=== PATIENT | female | born 1955 | race Caucasian/White ===

== ENCOUNTER 2017-11-06 10:08 | Inpatient (IN) ==
--- NOTE | 2017-11-06 11:02 | Emergency Department Note ---
Disposition Clinical Impression: Acute psychosis Disposition: Still a Patient Condition: Fair Referrals: NONE,PCP [Non-Partnered Physician] - Time of Disposition: 16:22 Psych HPI - General Stated Complaint: "psych eval" Time Seen by Provider: 11/06/17 10:45 Source: patient, family Mode of arrival: ambulatory Limitations: altered mental status Nursing Notes Reviewed: Yes Vital Signs Reviewed: Yes - History of Present Illness HPI Narrative: Nontoxic-appearing 62-year-old female with a history of schizophrenia is brought to emergency department for evaluation of worsening delusions and racing thoughts. According to the patient's spouse, she was recently discharged (approximately 5 weeks ago) from a psychiatric facility in [facility]. He states that ever since, he has noticed a gradual decline. He states that the patient is accusing both himself and other family members of inappropriate sexual contact with other members of her family. The spouse states that the patient has been trespassing into facilities, thinking that she is an employee at those facilities. 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 He states she has not in fact employed by that facility. He states that he feels as if her medications are just not working. She denies any thoughts of self-harm or thoughts of harming others. Onset (ago): unknown Duration: getting worse History of similar episodes: Yes Worsens with: none Alleged intoxication: No Associated Psychiatric Symptoms: racing thoughts, delusions Associated symptoms: Reports: denies other symptoms Self harm or harm to others: denies thoughts of harming self/others All systems ED: reviewed and negative except as stated. Constitutional: Denies: fever, chills, weakness, weight change Eyes: Denies: eye pain, eye discharge, vision change ENT ED: Denies: ear pain, throat pain, dental pain, hearing loss, epistaxis, congestion, dysphagia Cardiovascular: Denies: chest pain, palpitations, dyspnea on exertion, edema, syncope Respiratory: Denies: cough, dyspnea, wheezes, hemoptysis, stridor Gastrointestinal: Denies: abdominal pain, nausea, vomiting, diarrhea, constipation, hematemesis, melena, hematochezia Genitourinary: Denies: dysuria, frequency, hematuria, discharge Musculoskeletal: Denies: back pain, neck pain, arthralgia, myalgia Integumentary: Denies: rash, abrasion, lesions Neurological: Denies: headache, weakness, numbness, paresthesias, confusion, abnormal gait, vertigo Psychiatric: Reports: as per HPI, other (Delusions). Denies: anxiety, depression, suicidal thoughts, homicidal thoughts, auditory hallucinations, visual hallucinations Endocrine: Denies: fatigue Hematological/Lymphatic: Denies: easy bleeding, easy bruising Allergic/Immunologic: Denies: facial swelling, urticaria Past Medical History - Past Medical History Attestation: Yes The following information was validated with the patient. Source: patient, obtained from family, nursing notes reviewed Physical Exam - General Limitations: no limitations General appearance: alert, in no apparent distress - Head Head exam: atraumatic, normocephalic, normal inspection - Eye Eye exam: Present: normal appearance, PERRL, EOMI. Absent: nystagmus - ENT ENT exam: mucous membranes moist - Neck Neck exam: Present: normal inspection, full ROM, trachea midline - Chest Chest inspection: Present: normal inspection, symmetric chest wall rise - Respiratory Respiratory exam: Present: normal lung sounds bilaterally. Absent: respiratory distress, wheezes, stridor, accessory muscle use, prolonged expiratory phase - Cardiovascular Cardiovascular exam: Present: regular rate, normal rhythm, normal heart sounds - Abdominal Exam Abdominal exam: Present: soft, Non-Tender, normal bowel sounds - Extremities Exam Extremities exam: Present: normal inspection, full ROM. Absent: tenderness, pedal edema - Neurological Exam Neurological exam: Present: alert - Psychiatric Psychiatric exam: Present: agitated. Absent: homicidal ideation, suicidal ideation - Skin Skin exam: Present: warm, dry, intact, normal color. Absent: rash Course Course Narrative: 1550: I been notified by a business representative from [employer] that according to Dr. Rivers , the patient does not meet criteria for admission. I have requested a repeat mental health evaluation, given the patient's statements and states it is made by her spouse. Starch Mangle Tender from [facility] also questions the patient being slightly hypokalemic at 3.1 as well as slightly hyponatremic at 132. We will replace her potassium with 40 mEq of oral potassium chloride and administer a one-time 1 L bolus of normal saline to correct the hyponatremia. Urinalysis showed trace blood, small leukocyte esterase, many epithelial cells, and no bacteria. I do not feel that the urinalysis warrants treatment for a urinary tract infection. Vital Signs Pulse Rate 89 11/06/17 14:59 Respiratory Rate 16 11/06/17 14:59 Blood Pressure 129/72 11/06/17 14:59 O2 Sat by Pulse Oximetry 98 11/06/17 14:59 Pulse Rate 89 11/06/17 14:59 Respiratory Rate 16 11/06/17 14:59 Blood Pressure 129/72 11/06/17 14:59 O2 Sat by Pulse Oximetry 98 11/06/17 14:59 Oxygen Delivery Oxygen Delivery Room Air Psych - Lab Data Lab results reviewed: Yes I reviewed the patient's lab results. Result diagrams: 11/06/17 11:13 11/06/17 11:13 Lab Results 11/06/17 11/06/17 11/06/17 Range/Units 11:13 11:13 11:27 WBC 7.7 (4.3-11.1) K/mcL RBC 4.19 (3.82-4.97) M/mcL Hgb 12.3 (11.5-15.4) g/dL Hct 33.9 L (35.3-44.9) % MCV 80.9 L (83.0-100.0) fL MCH 29.4 (28.0-33.3) pg MCHC 36.3 H (31.6-35.5) g/dL RDW 12.3 (11.5-14.5) % Plt Count 310 (140-400) K/mcL MPV 10.3 (9.4-12.4) fL Immature Gran % 0.3 (0-4) % Seg Neutrophils % 75.9 % Lymphocytes % 17.0 % Monocytes % 6.1 % Eosinophils % 0.3 % Basophils % 0.4 % Neutrophils # 5.9 (1.6-8.9) K/mcL Lymphocytes # 1.3 (0.6-4.6) K/mcL Monocytes # 0.5 (0.0-1.3) K/mcL Eosinophils # 0.0 (0.0-0.6) K/mcL Basophils # 0.0 (0.0-0.2) K/mcL Sodium 132 L (136-145) mEq/L Potassium 3.1 L (3.5-5.1) mEq/L Chloride 99 (98-107) mEq/L Carbon Dioxide 27 (23-29) mEq/L BUN 22 (8-23) mg/dL Creatinine 1.09 (0.60-1.20) mg/dL Est GFR ( Amer) > 60 (> 60) Est GFR (Non-Af Amer) 51 L (> 60) BUN/Creatinine Ratio 20 (6-26) Glucose 148 H (70-105) mg/dL Calculated Osmolality 280 (280-300) Calcium 9.7 (8.6-10.3) mg/dL TSH 0.841 (0.340-5.600) mcIU/mL Urine Color Yellow (Yellow) Urine Clarity Clear (Clear) Urine pH 6.5 (5.0-8.0) pH Units Ur Specific [place] 1.012 (1.010-1.025) Urine Protein Negative (Neg-Trace) mg/dL Urine Glucose (UA) Normal (Normal) mg/dL Urine Ketones Negative (Negative) mg/dL Urine Blood Trace H (Negative) Urine Nitrite Negative (Negative) Urine Bilirubin Negative (Negative) Urine Urobilinogen Normal (Normal) mg/dL Ur Leukocyte Esterase Small H (Negative) Urine Microscopic RBC 0-3 (0-3) per hpf Urine Microscopic WBC 3-5 H (0-3) per hpf Ur Squamous Epith Cells Moderate H (None-Few) per lpf Urine Bacteria None Seen (None-Few) per hpf Hyaline Casts None Seen (None-Few) per lpf Salicylates < 2.5 L (15.0-30.0) mg/dL Urine Opiates Screen (Vuimwt=760) ng/mL Acetaminophen < 10 L (10-20) mcg/mL Ur Barbiturates Screen (Fhlsif=448) ng/mL Ur Phencyclidine Scrn (Cutoff=25) ng/mL Ur Amphetamines Screen (Adgdcr=2496) ng/mL U Benzodiazepines Scrn (Nvimsf=570) ng/mL Urine Cocaine Screen (Cutoff= 300) ng/mL U Marijuana (THC) Screen (Cutoff = 50) ng/mL Ur Drug Screen Interp Ethyl Alcohol < 10 (Less than 10) mg/dL 11/06/17 Range/Units 11:27 WBC (4.3-11.1) K/mcL RBC (3.82-4.97) M/mcL Hgb (11.5-15.4) g/dL Hct (35.3-44.9) % MCV (83.0-100.0) fL MCH (28.0-33.3) pg MCHC (31.6-35.5) g/dL RDW (11.5-14.5) % Plt Count (140-400) K/mcL MPV (9.4-12.4) fL Immature Gran % (0-4) % Seg Neutrophils % % Lymphocytes % % Monocytes % % Eosinophils % % Basophils % % Neutrophils # (1.6-8.9) K/mcL Lymphocytes # (0.6-4.6) K/mcL Monocytes # (0.0-1.3) K/mcL Eosinophils # (0.0-0.6) K/mcL Basophils # (0.0-0.2) K/mcL Sodium (136-145) mEq/L Potassium (3.5-5.1) mEq/L Chloride (98-107) mEq/L Carbon Dioxide (23-29) mEq/L BUN (8-23) mg/dL Creatinine (0.60-1.20) mg/dL Est GFR ( Amer) (> 60) Est GFR (Non-Af Amer) (> 60) BUN/Creatinine Ratio (6-26) Glucose (70-105) mg/dL Calculated Osmolality (280-300) Calcium (8.6-10.3) mg/dL TSH (0.340-5.600) mcIU/mL Urine Color (Yellow) Urine Clarity (Clear) Urine pH (5.0-8.0) pH Units Ur Specific [place] (1.010-1.025) Urine Protein (Neg-Trace) mg/dL Urine Glucose (UA) (Normal) mg/dL Urine Ketones (Negative) mg/dL Urine Blood (Negative) Urine Nitrite (Negative) Urine Bilirubin (Negative) Urine Urobilinogen (Normal) mg/dL Ur Leukocyte Esterase (Negative) Urine Microscopic RBC (0-3) per hpf Urine Microscopic WBC (0-3) per hpf Ur Squamous Epith Cells (None-Few) per lpf Urine Bacteria (None-Few) per hpf Hyaline Casts (None-Few) per lpf Salicylates (15.0-30.0) mg/dL Urine Opiates Screen Negative (Haknso=141) ng/mL Acetaminophen (10-20) mcg/mL Ur Barbiturates Screen Negative (Iwnbid=770) ng/mL Ur Phencyclidine Scrn Negative (Cutoff=25) ng/mL Ur Amphetamines Screen Negative (Ohcuoy=9909) ng/mL U Benzodiazepines Scrn Negative (Hjfcap=629) ng/mL Urine Cocaine Screen Negative (Cutoff= 300) ng/mL U Marijuana (THC) Screen Negative (Cutoff = 50) ng/mL Ur Drug Screen Interp See Below Ethyl Alcohol (Less than 10) mg/dL Psychiatric Medical Clearance - Medical Clearance Checklist Medical History: No Social History Section defined Current Vitals: Last Vital Signs Pulse 89 11/06/17 14:59 Resp 16 11/06/17 14:59 BP 129/72 11/06/17 14:59 Pulse Ox 98 11/06/17 14:59 Psychiatric Lab Panel: Drug Levels and Toxicity 11/06/17 11/06/17 11:13 11:27 Urine Opiates Screen Negative Acetaminophen < 10 L Ur Barbiturates Screen Negative Ur Phencyclidine Scrn Negative Ur Amphetamines Screen Negative U Benzodiazepines Scrn Negative Urine Cocaine Screen Negative U Marijuana (THC) Screen Negative Ethyl Alcohol < 10 Abnormal Labs: Abnormal lab results Hct 33.9 % (35.3-44.9) L 11/06/17 11:13 MCV 80.9 fL (83.0-100.0) L 11/06/17 11:13 MCHC 36.3 g/dL (31.6-35.5) H 11/06/17 11:13 Sodium 132 mEq/L (136-145) L 11/06/17 11:13 Potassium 3.1 mEq/L (3.5-5.1) L 11/06/17 11:13 Est GFR (Non-Af Amer) 51 (> 60) L 11/06/17 11:13 Glucose 148 mg/dL (70-105) H 11/06/17 11:13 Urine Blood Trace (Negative) H 11/06/17 11:27 Ur Leukocyte Esterase Small (Negative) H 11/06/17 11:27 Urine Microscopic WBC 3-5 per hpf (0-3) H 11/06/17 11:27 Ur Squamous Epith Cells Moderate per lpf (None-Few) H 11/06/17 11:27 Salicylates < 2.5 mg/dL (15.0-30.0) L 11/06/17 11:13 Acetaminophen < 10 mcg/mL (10-20) L 11/06/17 11:13 Statement of Medical Clearance: I have evaluated the patient, reviewed diagnostic information, and certify that the patient's medical condition is sufficiently stable that transfer to the psychiatric unit does not pose a significant risk of deterioration. Teri - Teri Situation: Demographics, MOA Background: Presenting Complaint, Relevant PMH, Meds, & Allergies Assessment: Vital Signs, Course and respsone to treatment, Exam Concerns, Patient/Family Expectation, Pertinant Lab Results, Outstanding Labs Recommendation: Barrier(s) to disposition, Recommendation based on pending studies, treatments, or consults [email or web address] Report Given to: Dr. Jaden Williamson Repor Time: 16:21
[2017-11-06 11:42] LABS: Basophils % 0.4 %; Eosinophils % 0.3 %; Hematocrit 33.9 % (35.3-44.9); Hemoglobin 12.3 g/dL (11.5-15.4); Immature Granulocytes % 0.3 % (0-4); Lymphocytes # 1.3 K/mcL (0.6-4.6); Mean Corpuscular HGB Conc 36.3 g/dL (31.6-35.5); Mean Corpuscular Hemoglobin 29.4 pg (28.0-33.3); Mean Corpuscular Volume 80.9 fL (83.0-100.0); Mean Platelet Volume 10.3 fL (9.4-12.4); Monocytes # 0.5 K/mcL (0.0-1.3); Monocytes % 6.1 %; Neutrophils # 5.9 K/mcL (1.6-8.9); Platelet Count 310 K/mcL (140-400); Red Blood Count 4.19 M/mcL (3.82-4.97); Red Cell Distribution Width 12.3 % (11.5-14.5); Segmented Neutrophils % 75.9 %
[2017-11-06 11:43] LABS: Bilirubin,Urine Negative (Negative); Blood,Urine Trace (Negative); Clarity,Urine Clear (Clear); Color,Urine Yellow (Yellow); Glucose,Urine (UA) Normal (Normal); Ketones,Urine Negative (Negative); Leukocyte Esterase,Urine Small (Negative); Nitrite,Urine Negative (Negative); PH,Urine 6.5 pH Units (5.0-8.0); Protein,Urine Negative (Neg-Trace); Specific Gravity,Urine 1.012 (1.010-1.025); Urobilinogen,Urine Normal (Normal)
[2017-11-06 11:44] LABS: Bacteria,Urine None Seen per hpf (None-Few); Hyaline Casts,Urine None Seen per lpf (None-Few); RBC,Urine 0-3 per hpf (0-3); Squamous Epithelial Cell,Urine Moderate per lpf (None-Few)
[2017-11-06 11:49] LABS: Acetaminophen < 10 mcg/mL (10-20); BUN/Creatinine Ratio 20 (6-26); Blood Urea Nitrogen 22 mg/dL (8-23); Calcium 9.7 mg/dL (8.6-10.3); Carbon Dioxide 27 mEq/L (23-29); Chloride 99 mEq/L (98-107); Ethanol < 10 mg/dL (Less than 10); Glucose 148 mg/dL (70-105); Osmolality,Calculated 280 (280-300); Potassium 3.1 mEq/L (3.5-5.1); Salicylate < 2.5 mg/dL (15.0-30.0); Sodium 132 mEq/L (136-145); eGFR For Non-African Americans 51 (> 60)
[2017-11-06 12:03] LABS: Amphetamine Screen,Urine Negative ng/mL (Cutoff=1000); Barbiturate Screen,Urine Negative ng/mL (Cutoff=200); Benzodiazepines Screen,Urine Negative ng/mL (Cutoff=200); Cannabinoid Screen,Urine Negative ng/mL (Cutoff = 50); Cocaine Screen,Urine Negative ng/mL (Cutoff= 300); Opiate Screen,Urine Negative ng/mL (Cutoff=300); Phencyclidine Screen,Urine Negative ng/mL (Cutoff=25)
[2017-11-06 12:03] LABS: Thyroid Stimulating Hormone 0.841 mcIU/mL (0.340-5.600)
[2017-11-06] MEDS ORDERED: 0.9 % Sodium Chloride 1,000 ML IVC ONE (15:58)
--- NOTE | 2017-11-06 16:27 | Emergency Department Note ---
Disposition Clinical Impression: Acute psychosis Disposition: Still a Patient Referrals: NONE,PCP [Non-Partnered Physician] - General Adult HPI - General Chief complaint: ED Psychiatric Symptoms Stated complaint: "psych eval" Time Seen by Provider: 11/06/17 10:45 Source: patient, family Mode of arrival: ambulatory Limitations: no limitations Constitutional: Denies: fever, chills, weakness, weight change Eyes: Denies: eye pain, eye discharge, vision change ENT ED: Denies: ear pain, throat pain, dental pain, hearing loss, epistaxis, congestion, dysphagia Cardiovascular: Denies: chest pain, palpitations, dyspnea on exertion, edema, syncope Respiratory: Denies: cough, dyspnea, wheezes, hemoptysis, stridor Gastrointestinal: Denies: abdominal pain, nausea, vomiting, diarrhea, constipation, hematemesis, melena, hematochezia Genitourinary: Denies: dysuria, frequency, hematuria, discharge Musculoskeletal: Denies: back pain, neck pain, arthralgia, myalgia Integumentary: Denies: rash, abrasion, lesions Neurological: Denies: headache, weakness, numbness, paresthesias, confusion, abnormal gait, vertigo Psychiatric: Reports: as per HPI, other (Delusions). Denies: anxiety, depression, suicidal thoughts, homicidal thoughts, auditory hallucinations, visual hallucinations Endocrine: Denies: fatigue Hematological/Lymphatic: Denies: easy bleeding, easy bruising Allergic/Immunologic: Denies: facial swelling, urticaria Physical Exam - General Limitations: no limitations General appearance: alert, in no apparent distress Course Vital Signs Pulse Rate 89 11/06/17 14:59 Respiratory Rate 16 11/06/17 14:59 Blood Pressure 129/72 11/06/17 14:59 O2 Sat by Pulse Oximetry 98 11/06/17 14:59 Pulse Rate 89 11/06/17 14:59 Respiratory Rate 16 11/06/17 14:59 Blood Pressure 129/72 11/06/17 14:59 O2 Sat by Pulse Oximetry 98 11/06/17 14:59 Oxygen Delivery Oxygen Delivery Room Air Medical Decision Making - Lab Data Result diagrams: 11/06/17 11:13 11/06/17 11:13 Lab Results 11/06/17 11/06/17 11/06/17 Range/Units 11:13 11:13 11:27 WBC 7.7 (4.3-11.1) K/mcL RBC 4.19 (3.82-4.97) M/mcL Hgb 12.3 (11.5-15.4) g/dL Hct 33.9 L (35.3-44.9) % MCV 80.9 L (83.0-100.0) fL MCH 29.4 (28.0-33.3) pg MCHC 36.3 H (31.6-35.5) g/dL RDW 12.3 (11.5-14.5) % Plt Count 310 (140-400) K/mcL MPV 10.3 (9.4-12.4) fL Immature Gran % 0.3 (0-4) % Seg Neutrophils % 75.9 % Lymphocytes % 17.0 % Monocytes % 6.1 % Eosinophils % 0.3 % Basophils % 0.4 % Neutrophils # 5.9 (1.6-8.9) K/mcL Lymphocytes # 1.3 (0.6-4.6) K/mcL Monocytes # 0.5 (0.0-1.3) K/mcL Eosinophils # 0.0 (0.0-0.6) K/mcL Basophils # 0.0 (0.0-0.2) K/mcL Sodium 132 L (136-145) mEq/L Potassium 3.1 L (3.5-5.1) mEq/L Chloride 99 (98-107) mEq/L Carbon Dioxide 27 (23-29) mEq/L BUN 22 (8-23) mg/dL Creatinine 1.09 (0.60-1.20) mg/dL Est GFR ( Amer) > 60 (> 60) Est GFR (Non-Af Amer) 51 L (> 60) BUN/Creatinine Ratio 20 (6-26) Glucose 148 H (70-105) mg/dL Calculated Osmolality 280 (280-300) Calcium 9.7 (8.6-10.3) mg/dL TSH 0.841 (0.340-5.600) mcIU/mL Urine Color Yellow (Yellow) Urine Clarity Clear (Clear) Urine pH 6.5 (5.0-8.0) pH Units Ur Specific [place] 1.012 (1.010-1.025) Urine Protein Negative (Neg-Trace) mg/dL Urine Glucose (UA) Normal (Normal) mg/dL Urine Ketones Negative (Negative) mg/dL Urine Blood Trace H (Negative) Urine Nitrite Negative (Negative) Urine Bilirubin Negative (Negative) Urine Urobilinogen Normal (Normal) mg/dL Ur Leukocyte Esterase Small H (Negative) Urine Microscopic RBC 0-3 (0-3) per hpf Urine Microscopic WBC 3-5 H (0-3) per hpf Ur Squamous Epith Cells Moderate H (None-Few) per lpf Urine Bacteria None Seen (None-Few) per hpf Hyaline Casts None Seen (None-Few) per lpf Salicylates < 2.5 L (15.0-30.0) mg/dL Urine Opiates Screen (Uxvhkn=961) ng/mL Acetaminophen < 10 L (10-20) mcg/mL Ur Barbiturates Screen (Exjxah=575) ng/mL Ur Phencyclidine Scrn (Cutoff=25) ng/mL Ur Amphetamines Screen (Kddswz=4746) ng/mL U Benzodiazepines Scrn (Sxhzro=655) ng/mL Urine Cocaine Screen (Cutoff= 300) ng/mL U Marijuana (THC) Screen (Cutoff = 50) ng/mL Ur Drug Screen Interp Ethyl Alcohol < 10 (Less than 10) mg/dL 11/06/17 Range/Units 11:27 WBC (4.3-11.1) K/mcL RBC (3.82-4.97) M/mcL Hgb (11.5-15.4) g/dL Hct (35.3-44.9) % MCV (83.0-100.0) fL MCH (28.0-33.3) pg MCHC (31.6-35.5) g/dL RDW (11.5-14.5) % Plt Count (140-400) K/mcL MPV (9.4-12.4) fL Immature Gran % (0-4) % Seg Neutrophils % % Lymphocytes % % Monocytes % % Eosinophils % % Basophils % % Neutrophils # (1.6-8.9) K/mcL Lymphocytes # (0.6-4.6) K/mcL Monocytes # (0.0-1.3) K/mcL Eosinophils # (0.0-0.6) K/mcL Basophils # (0.0-0.2) K/mcL Sodium (136-145) mEq/L Potassium (3.5-5.1) mEq/L Chloride (98-107) mEq/L Carbon Dioxide (23-29) mEq/L BUN (8-23) mg/dL Creatinine (0.60-1.20) mg/dL Est GFR ( Amer) (> 60) Est GFR (Non-Af Amer) (> 60) BUN/Creatinine Ratio (6-26) Glucose (70-105) mg/dL Calculated Osmolality (280-300) Calcium (8.6-10.3) mg/dL TSH (0.340-5.600) mcIU/mL Urine Color (Yellow) Urine Clarity (Clear) Urine pH (5.0-8.0) pH Units Ur Specific [place] (1.010-1.025) Urine Protein (Neg-Trace) mg/dL Urine Glucose (UA) (Normal) mg/dL Urine Ketones (Negative) mg/dL Urine Blood (Negative) Urine Nitrite (Negative) Urine Bilirubin (Negative) Urine Urobilinogen (Normal) mg/dL Ur Leukocyte Esterase (Negative) Urine Microscopic RBC (0-3) per hpf Urine Microscopic WBC (0-3) per hpf Ur Squamous Epith Cells (None-Few) per lpf Urine Bacteria (None-Few) per hpf Hyaline Casts (None-Few) per lpf Salicylates (15.0-30.0) mg/dL Urine Opiates Screen Negative (Mlvbbu=279) ng/mL Acetaminophen (10-20) mcg/mL Ur Barbiturates Screen Negative (Cuxnxo=849) ng/mL Ur Phencyclidine Scrn Negative (Cutoff=25) ng/mL Ur Amphetamines Screen Negative (Ckbauf=0778) ng/mL U Benzodiazepines Scrn Negative (Mizsqk=903) ng/mL Urine Cocaine Screen Negative (Cutoff= 300) ng/mL U Marijuana (THC) Screen Negative (Cutoff = 50) ng/mL Ur Drug Screen Interp See Below Ethyl Alcohol (Less than 10) mg/dL Attestation Statement - Attestation Attestation: For this encounter, I have reviewed the BASEBALL COACH or PA documentation, treatment plan, and medical decision making; and I have had face to face time with this patient. 62 year old lisa dhaliwal to the ED with history of schizophrenia and most recenlty had medications changed and discharge 5 weeks ago from a the medical center facility. at bedside states that there has been a gradual decline in mental status and has been showcasing more bizarre behavior as described by the PA. SHe likley is displayig manic behavior although she denies SI/HI. Originally nataliya evaluation states that she does not meet criteria for admision although we disagree with this evlaution and would appreciate a re-evlaution. Nataliya was concerned about her potassium and sodium and we will treat with potassium supplemnt and IVF therapy and then reconsult with [facility]. Nontoxic and calm at bedside
[2017-11-06] MEDS ORDERED: *HR* LORazepam 2 MG/ML VIAL IM PRN (23:00)
[2017-11-06] MEDS ORDERED: Mag Hydrox/Al Hydrox/Simeth 30 ML UDC PO PRN (23:00)
[2017-11-06] MEDS ORDERED: Haloperidol Lactate 5 MG/ML VIAL IM PRN (23:00)
[2017-11-06] MEDS ORDERED: MOM Conc 10 ML UD.LIQ PO PRN (23:00)
--- NOTE | 2017-11-07 11:01 | Psychiatry History & Physical ---
Date of Encounter: 11/07/17 Time of Encounter: 10:20 History of Present Illness Patient Stated Chief Complaint: Paranoid delusions, manic behavior Medicare Admission Attestation: For traditional Medicare patients the provided hospital inpatient services are reasonable and necessary and in the case of services not specified as inpatient -only under 42 CFR 419.22 (n), that they are appropriately provided as inpatient services in accordance 42 CFR 412.3. For Critical Access Hospital the patient may reasonably be expected to be discharged or transferred to a hospital within 96 hours after admission to the Critical Access Hospital. Admitted From: Emergency Dept History of Present Illness: Ms. Alvarez is a 62 year old female admitted from the emergency department for manic behavior and paranoid delusions and psychosis. Patient was brought in by family report patient has been increasingly manic delusional and paranoid she believe that her is having an affair and having sex with his daughter she think that he is to multiple women and used to, she told the nurse that she needed Adderall and Adipex to be strong. She was hyperactive was pressured speech disorganized speech and not redirectable. Patient has history of schizophrenia and bipolar disorder and was recently hospitalized in psychiatric hospital in [place] a few weeks ago according to the medication changes done at that time can be causing patient's excessive patient will symptoms records from this hospital's are not available at this time but are being requested. Patient also was at risk of elopement from the house and going into the community and be calm a safety risk to the family has to monitor and watch her constantly. She is reported to sleep only 2 hours a night that she has been confused and disorganized. She displayed paranoid delusion, sexual preoccupation and pressured speech and bizarre behavior. UDS was negative Past Med Surg Social Fam HX - Past Medical History Medical history: no medical history, cancer - Past Psychiatric History Psychiatric history: Reports: bipolar, schizophrenia, previous psychiatric hospitalization Past psychiatric history details: Recent hospitalization in [facility] - Past Surgical History Surgical History: cancer surgery, hysterectomy - Social History Smoking Status: Former smoker Smokeless Tobacco Status: No Alcohol use: none Drug use: other Medications & Allergies Amlodipine Besylate 10 mg PO DAILY 11/06/17 [History] Haloperidol 0.5 mg PO BID 11/06/17 [History] Lisinopril [Zestril] 20 mg PO DAILY 11/06/17 [History] Meloxicam [Mobic] 15 mg PO DAILY 11/06/17 [History] Topiramate [Topamax] 25 mg PO BID 11/06/17 [History] hydroCHLOROthiazide [Hydrochlorothiazide] 25 mg PO DAILY 11/06/17 [History] 3 Allergy/AdvReac Type Severity Reaction Status Date / Time No Known Allergies Allergy Verified 11/06/17 22:42 Review of Systems Psychiatric: Reports: auditory hallucinations, visual hallucinations, confusion , other (Paranoid delusions) Exam - HEENT Head exam IM: Present: atraumatic Eye exam IM: Present: EOMI, normal appearance, PERRL ENT exam IM: Present: normal exam - Neurological Neurological exam: Present: CN II-XII intact - Respiratory Respiratory exam IM: Present: CTAB - GI/Abdominal GI/Abdominal exam IM: Present: normal bowel sounds, soft. Absent: tenderness - Extremities Extremities exam IM: Present: full ROM - Skin Skin exam IM: Present: dry, warm - Constitutional Vitals: Temp Pulse Resp BP Pulse Ox 97.5 F L 85 16 133/87 98 11/07/17 09:00 11/07/17 09:00 11/07/17 09:00 11/07/17 09:00 11/06/17 14:59 General appearance: age & developmentally appropriate, well-nourished, disheveled, bizarre, obese - Musculoskeletal Gait: normal Station: relaxed Strength & Tone: normal for patient - Psychiatric Patient Orientation: Yes Person, Yes Time, Yes Place Level of alertness: Alert Behavior: calm, cooperative, suspicious, impulsive, talkative Psychomotor activity: Increased Eye Contact: Maintains Eye Contact Mood Description: Euthymic/stable, Anxious, Labile Affect description: congruent with mood, labile, euphoric Speech Volume: Normal Speech pattern: normal rate, normal rhythm, normal tone, fluent, spontaneous, disorganized, inappropriate to situation, rambling, excessive, pressured Language & Vocabulary: consistent with education Thought Process: Circumstantial, Loose Associations, Flight of Ideas, Disorganized, Racing Thought Content: No Suicidal ideation, No Homicidal ideation, Yes Overt delusions, Yes Ideas of reference, Yes Paranoid delusion, Yes Obsessive thoughts Perceptual Disturbances: Yes Auditory hallucinations, Yes Visual hallucinations Attention Span Ability: Capable of Focused Attention Memory Description: Grossly Intact Patient Reliability: Not Reliable Historian Fund of knowledge: Yes abstraction ability, Yes average, Yes aware of current events Intelligence Estimate: Average Judgment: Limited Insight: Partial Results - Labs Labs: Laboratory Last Values WBC 7.7 K/mcL (4.3-11.1) 11/06/17 11:13 RBC 4.19 M/mcL (3.82-4.97) 11/06/17 11:13 Hgb 12.3 g/dL (11.5-15.4) 11/06/17 11:13 Hct 33.9 % (35.3-44.9) L 11/06/17 11:13 MCV 80.9 fL (83.0-100.0) L 11/06/17 11:13 MCH 29.4 pg (28.0-33.3) 11/06/17 11:13 MCHC 36.3 g/dL (31.6-35.5) H 11/06/17 11:13 RDW 12.3 % (11.5-14.5) 11/06/17 11:13 Plt Count 310 K/mcL (140-400) 11/06/17 11:13 MPV 10.3 fL (9.4-12.4) 11/06/17 11:13 Immature Gran % 0.3 % (0-4) 11/06/17 11:13 Seg Neutrophils % 75.9 % 11/06/17 11:13 Lymphocytes % 17.0 % 11/06/17 11:13 Monocytes % 6.1 % 11/06/17 11:13 Eosinophils % 0.3 % 11/06/17 11:13 Basophils % 0.4 % 11/06/17 11:13 Neutrophils # 5.9 K/mcL (1.6-8.9) 11/06/17 11:13 Lymphocytes # 1.3 K/mcL (0.6-4.6) 11/06/17 11:13 Monocytes # 0.5 K/mcL (0.0-1.3) 11/06/17 11:13 Eosinophils # 0.0 K/mcL (0.0-0.6) 11/06/17 11:13 Basophils # 0.0 K/mcL (0.0-0.2) 11/06/17 11:13 Sodium 132 mEq/L (136-145) L 11/06/17 11:13 Potassium 3.1 mEq/L (3.5-5.1) L 11/06/17 11:13 Chloride 99 mEq/L (98-107) 11/06/17 11:13 Carbon Dioxide 27 mEq/L (23-29) 11/06/17 11:13 BUN 22 mg/dL (8-23) 11/06/17 11:13 Creatinine 1.09 mg/dL (0.60-1.20) 11/06/17 11:13 Est GFR ( Amer) > 60 (> 60) 11/06/17 11:13 Est GFR (Non-Af Amer) 51 (> 60) L 11/06/17 11:13 BUN/Creatinine Ratio 20 (6-26) 11/06/17 11:13 Glucose 148 mg/dL (70-105) H 11/06/17 11:13 Calculated Osmolality 280 (280-300) 11/06/17 11:13 Calcium 9.7 mg/dL (8.6-10.3) 11/06/17 11:13 TSH 0.841 mcIU/mL (0.340-5.600) 11/06/17 11:13 Urine Color Yellow (Yellow) 11/06/17 11:27 Urine Clarity Clear (Clear) 11/06/17 11:27 Urine pH 6.5 pH Units (5.0-8.0) 11/06/17 11:27 Ur Specific [place] 1.012 (1.010-1.025) 11/06/17 11:27 Urine Protein Negative mg/dL (Neg-Trace) 11/06/17 11:27 Urine Glucose (UA) Normal mg/dL (Normal) 11/06/17 11:27 Urine Ketones Negative mg/dL (Negative) 11/06/17 11:27 Urine Blood Trace (Negative) H 11/06/17 11:27 Urine Nitrite Negative (Negative) 11/06/17 11:27 Urine Bilirubin Negative (Negative) 11/06/17 11:27 Urine Urobilinogen Normal mg/dL (Normal) 11/06/17 11:27 Ur Leukocyte Esterase Small (Negative) H 11/06/17 11:27 Urine Microscopic RBC 0-3 per hpf (0-3) 11/06/17 11:27 Urine Microscopic WBC 3-5 per hpf (0-3) H 11/06/17 11:27 Ur Squamous Epith Cells Moderate per lpf (None-Few) H 11/06/17 11:27 Urine Bacteria None Seen per hpf (None-Few) 11/06/17 11:27 Hyaline Casts None Seen per lpf (None-Few) 11/06/17 11:27 Salicylates < 2.5 mg/dL (15.0-30.0) L 11/06/17 11:13 Urine Opiates Screen Negative ng/mL (Wgxdyi=673) 11/06/17 11:27 Acetaminophen < 10 mcg/mL (10-20) L 11/06/17 11:13 Ur Barbiturates Screen Negative ng/mL (Ebmgyu=217) 11/06/17 11:27 Ur Phencyclidine Scrn Negative ng/mL (Cutoff=25) 11/06/17 11:27 Ur Amphetamines Screen Negative ng/mL ([place]=8561) 11/06/17 11:27 U Benzodiazepines Scrn Negative ng/mL (Cqzpdd=532) 11/06/17 11:27 Urine Cocaine Screen Negative ng/mL (Cutoff= 300) 11/06/17 11:27 U Marijuana (THC) Screen Negative ng/mL (Cutoff = 50) 11/06/17 11:27 Ur Drug Screen Interp See Below 11/06/17 11:27 Ethyl Alcohol < 10 mg/dL (Less than 10) 11/06/17 11:13 Assessment and Plan (1) Bipolar disorder with psychotic features Current visit: Yes Status: Acute Plan: Admit inpatient for safety and stabilization, Close observation, Suicide Precautions per unit protocol, Encourage participation in unit milieu, Group Therapy, Monitor sleep, Monitor appetite Additional Plan: 1. Request psychiatric treatment records from hospitals 2. Will review her medication and initiate treatment. Risks, benefits, side effects, alternatives discussed w/pt: Yes Patient agreeable to treatment: Yes
[2017-11-07] MEDS: Divalproex (12 HR) 250 MG TABLET PO SCH ×3 (12:50→20:52)
[2017-11-08] MEDS: Divalproex (12 HR) 250 MG TABLET PO SCH ×2 (07:55→20:32)
--- NOTE | 2017-11-08 12:27 | Psychiatry Progress Note ---
Date of Encounter: 11/08/17 Time of Encounter: 12:15 Subjective Interval history: Patient seen for follow-up. Case discussed was nursing staff. She continued to be delusional, paranoid and disorganized. She is not attending groups and isolates herself in her room. Speech is disorganized, with flight of ideas and loose associations. She continued to believe that her is to her daughter. She is sexually preoccupied. She is apprehensive about taking medication but she took it. Psychiatric treatment the records are not available yet. Review of Systems Psychiatric: Reports: auditory hallucinations, visual hallucinations, confusion , other (Paranoid delusions) Results - Vital Signs Vital Signs: Temp Pulse Resp BP Pulse Ox 97.5 F L 90 16 142/94 98 11/08/17 09:00 11/08/17 09:00 11/08/17 09:00 11/08/17 09:00 11/06/17 14:59 Assessment and Plan (1) Bipolar disorder with psychotic features Current visit: Yes Status: Acute Plan: Continue hospitalization, Close observation, Suicide Precautions per unit protocol, Encourage participation in unit milieu, Group Therapy, Monitor sleep, Monitor appetite Risks, benefits, side effects, alternatives discussed w/pt: Yes Patient agreeable to treatment: Yes Consult Discharge Plan - Plan Psychiatry Exam - Constitutional Vitals: Temp Pulse Resp BP Pulse Ox 97.5 F L 90 16 142/94 98 11/08/17 09:00 11/08/17 09:00 11/08/17 09:00 11/08/17 09:00 11/06/17 14:59 General appearance: age & developmentally appropriate, well-nourished, unkempt, disheveled, inappropriate, bizarre, obese - Musculoskeletal Gait: normal Station: relaxed Strength & Tone: normal for patient - Psychiatric Patient Orientation: Yes Person, Yes Time, Yes Place Level of alertness: Alert Behavior: cooperative, nervous, suspicious, distractible, impulsive, talkative Psychomotor activity: Increased Eye Contact: Fleeting Contact Mood Description: Euphoric, Labile Affect description: congruent with mood, labile, euphoric Speech Volume: Normal Speech pattern: fluent, spontaneous, Inappropriate to situation, disorganized, rambling, excessive, pressured Language & Vocabulary: consistent with education Thought Process: Loose Associations, Tangential, Flight of Ideas, Disorganized, Racing Thought Content: No Suicidal ideation, No Homicidal ideation, No Overt delusions Perceptual Disturbances: No Auditory hallucinations, No Visual hallucinations Attention Span Ability: Capable of Focused Attention Memory Description: Grossly Intact Patient Reliability: Not Reliable Historian Fund of knowledge: Yes abstraction ability, Yes aware of current events Intelligence Estimate: Average Judgment: Limited Insight: None
[2017-11-08] MEDS: amLODIPine 5 MG TABLET PO SCH (14:16)
[2017-11-08] MEDS: Topiramate 25 MG TABLET PO SCH ×2 (14:17→20:32)
[2017-11-09] MEDS: amLODIPine 5 MG TABLET PO SCH (09:39)
[2017-11-09] MEDS: Divalproex (12 HR) 250 MG TABLET PO SCH ×2 (09:43→20:25)
[2017-11-09] MEDS: Lisinopril 20 MG TABLET PO SCH (09:44)
[2017-11-09] MEDS: Topiramate 25 MG TABLET PO SCH ×2 (09:44→20:25)
[2017-11-09] MEDS: hydroCHLOROthiazide 25 MG TABLET PO SCH (09:44)
--- NOTE | 2017-11-09 10:29 | Psychiatry Progress Note ---
Date of Encounter: 11/09/17 Time of Encounter: 10:27 Subjective Interval history: Pt seen and evaluated. Pt reports she is doing "ok" she still cnotinues to believe that her and daughter are . she reports the house is in her name and reports "im not going to leave the house its mine i saw the deed". Pt continues to be paranoiad and confused. then goes ont o say "i guess she is my daughter but then i found out she isnt". Pt reports she has been taking her medication and reports she had missed 1 day. Review of Systems Psychiatric: Reports: anxiety, auditory hallucinations, confusion, other ( Paranoid delusions) Results - Vital Signs Vital Signs: Temp Pulse Resp BP Pulse Ox 98.8 F 99 18 152/87 98 11/08/17 20:14 11/08/17 20:14 11/08/17 20:14 11/08/17 20:14 11/06/17 14:59 Assessment and Plan (1) Bipolar disorder with psychotic features Current visit: Yes Status: Acute Plan: Continue hospitalization, Close observation, Suicide Precautions per unit protocol, Encourage participation in unit milieu, Group Therapy, Monitor sleep, Monitor appetite, Family/Supportive other meeting Risks, benefits, side effects, alternatives discussed w/pt: Yes Patient agreeable to treatment: Yes Consult Discharge Plan - Plan Additional Instructions: will review medications and med changes accordingly Referrals: Divya Sunshine [facility] [Primary Care Provider] - Psychiatry Exam - Constitutional Vitals: Temp Pulse Resp BP Pulse Ox 98.8 F 99 18 152/87 98 11/08/17 20:14 11/08/17 20:14 11/08/17 20:14 11/08/17 20:14 11/06/17 14:59 General appearance: well-nourished - Musculoskeletal Gait: normal Strength & Tone: normal for patient - Psychiatric Patient Orientation: Yes Person, Yes Time, Yes Place, Yes Circumstance Level of alertness: Alert Behavior: calm, cooperative Psychomotor activity: Normal Eye Contact: Maintains Eye Contact Mood Description: Anxious, Labile Affect description: blunted, flat, anxious Speech Volume: Normal Speech pattern: slowed, disorganized Language & Vocabulary: consistent with education Thought Process: Disorganized, Perseveration, Slowed Thinking Thought Content: Yes Preoccupation, Yes Paranoid delusion Perceptual Disturbances: Yes Reacting to internal stimuli Attention Span Ability: Capable of Focused Attention, Capable of Sustained Attention Memory Description: Grossly Intact Patient Reliability: Questionable Historian Fund of knowledge: Yes average Intelligence Estimate: Average Judgment: Limited Insight: Minimal
[2017-11-10] MEDS: Topiramate 25 MG TABLET PO SCH ×2 (08:57→20:07)
[2017-11-10] MEDS: amLODIPine 5 MG TABLET PO SCH (08:57)
[2017-11-10] MEDS: Lisinopril 20 MG TABLET PO SCH (08:57)
[2017-11-10] MEDS: Divalproex (12 HR) 250 MG TABLET PO SCH ×2 (08:57→20:07)
[2017-11-10] MEDS: hydroCHLOROthiazide 25 MG TABLET PO SCH (08:57)
--- NOTE | 2017-11-10 11:43 | Psychiatry Progress Note ---
Date of Encounter: 11/10/17 Time of Encounter: 11:41 Subjective Interval history: Patient seen and evaluated this morning. Patient continues to be very confused not able to understand things that have been suicide attempted to explain the difference between a 72 hour hold an involuntary hold and then patient was able to understand once it was written down for her and make explained in detail patient then did sign the voluntary hold the patient continues to be med selective at times she reports that she has been taking most of her medication. Patient reports that she felt that the Depakote gave her "a white dream" and went on a tangent about some karen that does not her boyfriend but she had "intercourse with him". Patient continues to be a little disorganized at times but it is able to be redirected patient still has some decompensation and requires further stabilization on medication at this time patient is reluctant to make medication changes we will continue to monitor patient's mood and behavior. Since admission patient has been slowly improving expect discharge later this week Review of Systems Psychiatric: Reports: anxiety, auditory hallucinations, confusion, difficulty concentrating, hopelessness, other (Paranoid delusions) Results - Vital Signs Vital Signs: Temp Pulse Resp BP Pulse Ox 97.8 F 90 18 118/79 98 11/10/17 09:00 11/10/17 09:00 11/10/17 09:00 11/10/17 09:00 11/06/17 14:59 Assessment and Plan (1) Bipolar disorder with psychotic features Current visit: Yes Status: Acute Plan: Continue hospitalization, Close observation, Encourage participation in unit milieu, Group Therapy, Monitor sleep, Monitor appetite Additional Plan: - will continue to discuss medicaiton adjustment with pt at this time she is reluctnat to med changes and continues to be conused and disrogarnized Risks, benefits, side effects, alternatives discussed w/pt: Yes Patient agreeable to treatment: Yes Consult Discharge Plan - Plan Additional Instructions: will review medications and med changes accordingly Referrals: Makenzie Leal [facility] [Outside] - 11/20/17 3:00 pm (The above appointment is with Bill for mental health counseling.Please bring photo ID and insurance card.) Jeny Childers MD [Non-Partnered Physician] - 11/19/17 1:30 pm (The above appointment is with Dr. Childers for primary care and medication management. Please bring photo ID and insurance card. ) Psychiatry Exam - Constitutional Vitals: Temp Pulse Resp BP Pulse Ox 97.8 F 90 18 118/79 98 11/10/17 09:00 11/10/17 09:00 11/10/17 09:00 11/10/17 09:00 11/06/17 14:59 General appearance: disheveled - Musculoskeletal Gait: normal Strength & Tone: normal for patient - Psychiatric Patient Orientation: Yes Person, Yes Time, Yes Place, Yes Circumstance Level of alertness: Alert Behavior: anxious, guarded, distractible Psychomotor activity: Normal Eye Contact: Minimal Contact Affect description: labile Speech Volume: Normal Speech pattern: disorganized Language & Vocabulary: limited Thought Process: Tangential Thought Content: Yes Intact Attention Span Ability: Unable to Focus, Unable to Sustain Attention Patient Reliability: Questionable Historian Fund of knowledge: Yes below average Intelligence Estimate: Below Average Judgment: Limited Insight: Minimal
[2017-11-10] MEDS: *HR* LORazepam 1 MG TABLET PO PRN (20:07)
[2017-11-11] MEDS: Ibuprofen 400 MG TABLET PO PRN ×2 (07:15→20:54)
[2017-11-11] MEDS: Divalproex (12 HR) 250 MG TABLET PO SCH (08:47)
[2017-11-11] MEDS: amLODIPine 5 MG TABLET PO SCH (08:47)
[2017-11-11] MEDS: Topiramate 25 MG TABLET PO SCH ×2 (08:47→20:54)
[2017-11-11] MEDS: hydroCHLOROthiazide 25 MG TABLET PO SCH (08:48)
[2017-11-11] MEDS: Lisinopril 20 MG TABLET PO SCH (08:48)
--- NOTE | 2017-11-11 09:37 | Psychiatry Progress Note ---
Date of Encounter: 11/11/17 Time of Encounter: 09:35 Subjective Interval history: Patient seen and evaluated this morning. Patient continues to be very difficult in regards to taking her medication and taking care of her hygiene she continues to refuse to take a shower even when asked to do so and getting help to do so patient again was spoken to about taking care of her hygiene instinctive compliant with her medication. Patient has been responding to internal stimuli and staff is reporting That most of this is occurring usually after lodger in the afternoon. Patient did speak with yesterday and somatic staff and. Patient's reports the patient is not at baseline currently and continues to be very delusional. Patient continues to endorse paranoia delusions, hypersexual behaviors. Discussed and reviewed medication with patient patient continues to be very resistant to medication changes. We will make med adjustments accordingly to help with patient's current paranoid delusions as well as not being as impulsive. Patient was unable to answer if she had any safety concerns unable to answer if she had any SI or HI at the time of evaluation. Patient continues to make minimal contacting continues to need redirection when asked questions. Patient is very focused on her and what he is doing in regards to his daughter and stated to this provider today that "when I leave administered doing whatever I wanted due to just like he is doing at". Review of Systems Psychiatric: Reports: anxiety, auditory hallucinations, confusion, difficulty concentrating, hopelessness, other (Paranoid delusions) Results - Vital Signs Vital Signs: Temp Pulse Resp BP Pulse Ox 98.1 F 90 16 116/88 98 11/11/17 08:31 11/11/17 08:31 11/11/17 08:31 11/11/17 08:31 11/06/17 14:59 Assessment and Plan (1) Bipolar disorder with psychotic features Current visit: Yes Status: Acute Plan: Continue hospitalization, Close observation, Encourage participation in unit milieu, Group Therapy, Monitor sleep, Monitor appetite Risks, benefits, side effects, alternatives discussed w/pt: Yes Patient agreeable to treatment : Yes Consult Discharge Plan - Plan Additional Instructions: - increase depakote - increase hadol to 0.5 mg TID to help with ongoign paranoia nd delusions if pt doesnt respond to this may consider started invega oral so pt can get montly injection [facility] - 11/20/17 3:00 pm (The above appointment is with Bill, for mental health counseling. Please bring photo ID and insurance card. You will also see Clint Lopez for psychiatric assessment and medication management on 12/15/2017 at 8:30am. You must keep one counseling appointment per month to be able to see the psychiatry provider.) Jeny Childers MD [Non-Partnered Physician] - 11/19/17 1:30 pm (The above appointment is with Dr. Childers for primary care and medication management. Please bring photo ID and insurance card. ) Psychiatry Exam - Constitutional Vitals: Temp Pulse Resp BP Pulse Ox 98.1 F 90 16 116/88 98 11/11/17 08:31 11/11/17 08:31 11/11/17 08:31 11/11/17 08:31 11/06/17 14:59 General appearance: unkempt, disheveled, malodorous, inappropriate, bizarre - Musculoskeletal Gait: normal Strength & Tone: normal for patient - Psychiatric Patient Orientation: Yes Person, Yes Time, Yes Place, Yes Circumstance Level of alertness: Alert Behavior: nervous, anxious, restless, uncooperative, guarded, suspicious, impulsive Psychomotor activity: Slowed Eye Contact: Minimal Contact Mood Description: Angry, Anxious, Labile, Irritable Affect description: flat Speech Volume: Soft/Quiet Speech pattern: disorganized, inappropriate to situation Thought Process: Tangential, Thought Blocking Thought Content: Yes Poverty of Content Perceptual Disturbances: Yes Auditory hallucinations Attention Span Ability: Unable to Focus, Unable to Sustain Attention Patient Reliability: Not Reliable Historian Fund of knowledge: Yes below average Intelligence Estimate: Below Average Judgment: Poor Insight: Minimal
[2017-11-11] MEDS: Divalproex (12 HR) 500 MG TABLET PO SCH (20:54)
[2017-11-11] MEDS: traZODone 50 MG TABLET PO PRN (23:58)
[2017-11-12] MEDS: Ibuprofen 400 MG TABLET PO PRN ×2 (08:56→21:21)
[2017-11-12] MEDS: Divalproex (12 HR) 500 MG TABLET PO SCH ×2 (08:57→21:25)
[2017-11-12] MEDS: Topiramate 25 MG TABLET PO SCH ×2 (08:57→21:21)
[2017-11-12] MEDS: Lisinopril 20 MG TABLET PO SCH (09:58)
[2017-11-12] MEDS: hydroCHLOROthiazide 25 MG TABLET PO SCH (09:58)
[2017-11-12] MEDS: amLODIPine 5 MG TABLET PO SCH (09:58)
--- NOTE | 2017-11-12 10:25 | Psychiatry Progress Note ---
Date of Encounter: 11/12/17 Time of Encounter: 10:23 Review of Systems Psychiatric: Reports: anxiety, auditory hallucinations, confusion, difficulty concentrating, hopelessness, mood swings, other (Paranoid delusions) Results - Vital Signs Vital Signs: Temp Pulse Resp BP Pulse Ox 97.3 F L 96 16 95/67 98 11/12/17 09:00 11/12/17 09:00 11/12/17 09:00 11/12/17 09:15 11/06/17 14:59 Assessment and Plan (1) Bipolar disorder with psychotic features Current visit: Yes Status: Acute Plan: Continue hospitalization, Encourage participation in unit milieu, Group Therapy, Monitor sleep, Monitor appetite Risks, benefits, side effects, alternatives discussed w/pt: Yes Patient agreeable to treatment: Yes Consult Discharge Plan - Plan Additional Instructions: 11/12: - start invega 3 mg po qam - will taper off haldol if pt respodning to invega - longterm goal of LA injection invega if pt tolerates well - on probate 11/11 - increase depakote - increase hadol to 0.5 mg TID to help with ongoign paranoia nd delusions if pt doesnt respond to this may consider started invega oral so pt can get montly injection Referrals: [facility] [Outside] - 11/20/17 3:00 pm (The above appointment is with Bill for mental health counseling. Please bring photo ID and insurance card. You will also see Clint Lopez for psychiatric assessment and medication management on 12/15/2017 at 8:30am. You must keep one counseling appointment per month to be able to see the psychiatry provider.) Jeny Childers MD [Non-Partnered Physician] - 11/19/17 1:30 pm (The above appointment is with Dr. Childers for primary care and medication management. Please bring photo ID and insurance card. ) Psychiatry Exam - Constitutional Vitals: Temp Pulse Resp BP Pulse Ox 97.3 F L 96 16 95/67 98 11/12/17 09:00 11/12/17 09:00 11/12/17 09:00 11/12/17 09:15 11/06/17 14:59 General appearance: disheveled, malodorous, inappropriate, bizarre, malnourished - Musculoskeletal Gait: normal Station: bizarre mannerisms Strength & Tone: normal for patient - Psychiatric Patient Orientation: Yes Person, Yes Time, Yes Place, Yes Circumstance Level of alertness: Alert Behavior: anxious, restless, uncooperative, guarded, suspicious Psychomotor activity: Slowed Eye Contact: Minimal Contact Mood Description: Anxious, Expansive, Labile, Irritable Affect description: blunted Speech Volume: Soft/Quiet Speech pattern: slowed, inappropriate to situation Language & Vocabulary: limited Thought Process: Tangential, Disorganized Thought Content: Yes Preoccupation, Yes Paranoid delusion, Yes Obsessive thoughts Perceptual Disturbances: Yes Auditory hallucinations Attention Span Ability: Unable to Focus, Unable to Sustain Attention Memory Description: Recent Impaired, Remote Intact Patient Reliability: Not Reliable Historian Fund of knowledge: Yes below average Intelligence Estimate: Below Average Judgment: Poor Insight: Minimal
[2017-11-12] MEDS: *HR* LORazepam 1 MG TABLET PO PRN (11:18)
[2017-11-12] MEDS: traZODone 50 MG TABLET PO PRN (21:21)
[2017-11-13] MEDS: amLODIPine 5 MG TABLET PO SCH (09:28)
[2017-11-13] MEDS: hydroCHLOROthiazide 25 MG TABLET PO SCH (09:28)
[2017-11-13] MEDS: Divalproex (12 HR) 500 MG TABLET PO SCH (09:28)
[2017-11-13] MEDS: Lisinopril 20 MG TABLET PO SCH (09:29)
[2017-11-13] MEDS: Topiramate 25 MG TABLET PO SCH ×2 (09:29→21:10)
[2017-11-13] MEDS: Ibuprofen 400 MG TABLET PO PRN (10:09)
--- NOTE | 2017-11-13 12:14 | Psychiatry Progress Note ---
Date of Encounter: 11/13/17 Time of Encounter: 12:11 Subjective Interval history: Patient seen and evaluated this morning patient continues to be very paranoid and delusional and still has not been taking care of her ADLs patient refuses to take a shower patient continues to be hypersexual attempted to readjust patient's medication to help with patient's paranoia and delusions patient was compliant with her first dose of lumbago yesterday if patient continues to be employed compliant with them Vago will start to decrease and discontinue the Haldol the ultimate plan is for patient to get the long acting injection but at this time patient is refusing to do so because she wants to be discharged patient is currently in line for probate appropriate paperwork has been filed. Attempted to discuss increase her Depakote dosage with patient and patient was refusing this and states that she does not need this. This provider did put increase in the dosage and then we will see if patient refuses this or is compliant with taking it. Patient continues to be very decompensated not taking care of herself as a danger to self or others if discharged at this time. On the unit patient has to be redirected from male peers due to her hypersexuality as well. Review of Systems Psychiatric: Reports: anxiety, auditory hallucinations, confusion, difficulty concentrating, hopelessness, mood swings, other (Paranoid delusions) Results - Vital Signs Vital Signs: Temp Pulse Resp BP Pulse Ox 97.3 F L 119 16 117/89 98 11/13/17 09:00 11/13/17 09:00 11/13/17 09:00 11/13/17 09:00 11/06/17 14:59 Assessment and Plan (1) Bipolar disorder with psychotic features Current visit: Yes Status: Acute Plan: Continue hospitalization, Suicide Precautions per unit protocol, Encourage participation in unit milieu, Group Therapy, Monitor sleep, Monitor appetite, Family/Supportive other meeting Additional Plan: - 11/13: increased depakote 500 mg tid , if pt remains complaint with invega will start to decrease haldol dosage and once she goes to probate would recc LA invega injection. Risks, benefits, side effects, alternatives discussed w/pt: Yes Patient agreeable to treatment: Yes Consult Discharge Plan - Plan Additional Instructions: 11/12: - start invega 3 mg po qam - will taper off haldol if pt respodning to invega - usp goal of LA injection invega if pt tolerates well - on probate 11/11 - increase depakote - increase hadol to 0.5 mg TID to help with ongoign paranoia nd delusions if pt doesnt respond to this may consider started invega oral so pt can get montly injection Referrals: Makenzie Samaniego [facility] [Outside] - 11/20/17 3:00 pm (The above appointment is with Bill for mental health counseling. Please bring photo ID and insurance card. You will also see Clint Lopez for psychiatric assessment and medication management on 12/15/2017 at 8:30am. You must keep one counseling appointment per month to be able to see the psychiatry provider.) Jeny Childers MD [Non-Partnered Physician] - 11/19/17 1:30 pm (The above appointment is with Dr. Childers for primary care and medication management. Please bring photo ID and insurance card. ) Psychiatry Exam - Constitutional Vitals: Temp Pulse Resp BP Pulse Ox 97.3 F L 119 16 117/89 98 11/13/17 09:00 11/13/17 09:00 11/13/17 09:00 11/13/17 09:00 11/06/17 14:59 General appearance: unkempt, disheveled, malodorous, inappropriate, bizarre - Musculoskeletal Gait: normal Strength & Tone: normal for patient - Psychiatric Patient Orientation: Yes Person, Yes Time, Yes Place, Yes Circumstance Level of alertness: Alert Behavior: anxious, restless, uncooperative, guarded, suspicious, fearful, distractible, withdrawn Psychomotor activity: Slowed Mood Description: Depressed, Anxious, Labile, Irritable Affect description: blunted, flat, tearful Speech Volume: Excessive Variation Speech pattern: rambling, excessive, pressured, repetetive Language & Vocabulary: limited Thought Process: Tangential, Disorganized Thought Content: Yes Overt delusions, Yes Preoccupation, Yes Paranoid delusion, Yes Sabianist delusion, Yes Somatic delusion, Yes Obsessive thoughts Perceptual Disturbances: Yes Auditory hallucinations Memory Description: Recent Impaired, Remote Intact Patient Reliability: Not Reliable Historian Fund of knowledge: Yes below average Intelligence Estimate: Below Average Judgment: Poor Insight: Minimal
[2017-11-13] MEDS: Divalproex (12 HR) 250 MG TABLET PO SCH ×3 (14:37→21:10)
[2017-11-14] MEDS: Lisinopril 20 MG TABLET PO SCH (08:34)
[2017-11-14] MEDS: hydroCHLOROthiazide 25 MG TABLET PO SCH (08:34)
[2017-11-14] MEDS: Divalproex (12 HR) 250 MG TABLET PO SCH ×3 (08:35→20:58)
[2017-11-14] MEDS: Topiramate 25 MG TABLET PO SCH ×2 (08:35→20:59)
[2017-11-14] MEDS: amLODIPine 5 MG TABLET PO SCH (08:35)
--- NOTE | 2017-11-14 09:53 | Psychiatry Progress Note ---
Date of Encounter: 11/14/17 Time of Encounter: 09:49 Subjective Interval history: Client is still manic and delusional. Angry about taking medications. Says she wants to refuse them. Has probate hearing next week. Client is actively responding to IS while speaking with this service writer advisor-keeps talking to her "mom" when no one else is in the room. Very focused on her sex drive and what medications will do to her sexual health. Also wanting diet pills. [place] States she takes diet pills to help with neuropathy in her legs. Pleasant but psychotic. Staff report she is also refusing to bathe and staff need to assist her daily with getting in the shower. Started on Invega with the plan to transition her to a long acting. Will increase dose today. Review of Systems Constitutional: Reports: other Eyes: Denies: eye pain, vision change Ears, Nose, Throat: Denies: ear pain, throat pain, dental pain, hearing loss, congestion Cardiovascular: Denies: chest pain, palpitations, dyspnea on exertion Respiratory: Denies: cough, dyspnea, wheezes Gastrointestinal: Denies: abdominal pain, nausea, vomiting, diarrhea, constipation Musculoskeletal: Denies: joint swelling, joint pain Neurological: Reports: weakness, abnormal gait, other Psychiatric: Reports: anxiety, auditory hallucinations, confusion, difficulty concentrating, hopelessness, mood swings, other (Paranoid delusions) Results - Vital Signs Vital Signs: Temp Pulse Resp BP Pulse Ox 98.1 F 54 17 119/77 98 11/13/17 21:00 11/13/17 21:00 11/13/17 21:00 11/13/17 21:00 11/06/17 14:59 Assessment and Plan (1) Bipolar disorder with psychotic features Current visit: Yes Status: Acute Plan: Continue hospitalization, Close observation, Suicide Precautions per unit protocol, Encourage participation in unit milieu, Group Therapy, Monitor sleep, Monitor appetite Risks, benefits, side effects, alternatives discussed w/pt: Yes Patient agreeable to treatment: Yes Consult Discharge Plan - Plan Additional Instructions: 11/12: - start invega 3 mg po qam - will taper off haldol if pt respodning to invega - correction goal of LA injection invega if pt tolerates well - on probate 11/11 - increase depakote - increase hadol to 0.5 mg TID to help with ongoign paranoia nd delusions if pt doesnt respond to this may consider started invega oral so pt can get montly injection Referrals: Makenzie Leal [facility] [Outside] - 11/20/17 3:00 pm (The above appointment is with Bill for mental health counseling. Please bring photo ID and insurance card. You will also see Clint Loepz for psychiatric assessment and medication management on 12/15/2017 at 8:30am. You must keep one counseling appointment per month to be able to see the psychiatry provider.) Jeny Childers MD [Non-Partnered Physician] - 11/19/17 1:30 pm (The above appointment is with Dr. Childers for primary care and medication management. Please bring photo ID and insurance card. ) Psychiatry Exam - Constitutional Vitals: Temp Pulse Resp BP Pulse Ox 98.1 F 54 17 119/77 98 11/13/17 21:00 11/13/17 21:00 11/13/17 21:00 11/13/17 21:00 11/06/17 14:59 General appearance: age & developmentally appropriate - Musculoskeletal Gait: slow Station: relaxed Strength & Tone: normal for patient - Psychiatric Patient Orientation: Yes Person, Yes Time, Yes Place Level of alertness: Alert Behavior: calm, cooperative Psychomotor activity: Slowed Eye Contact: Minimal Contact Mood Description: Angry Affect description: congruent with mood Speech Volume: Normal Speech pattern: normal rate, normal rhythm, normal tone, fluent, spontaneous Language & Vocabulary: consistent with education Thought Process: Disorganized Thought Content: No Suicidal ideation, No Homicidal ideation, Yes Overt delusions, Yes Preoccupation Perceptual Disturbances: Yes Reacting to internal stimuli Attention Span Ability: Capable of Focused Attention Memory Description: Grossly Intact Patient Reliability: Not Reliable Historian Fund of knowledge: Yes abstraction ability, Yes aware of current events Intelligence Estimate: Average Judgment: Poor Insight: Minimal
[2017-11-15] MEDS: Divalproex (12 HR) 250 MG TABLET PO SCH ×3 (08:34→21:41)
[2017-11-15] MEDS: amLODIPine 5 MG TABLET PO SCH (08:34)
[2017-11-15] MEDS: hydroCHLOROthiazide 25 MG TABLET PO SCH (08:35)
[2017-11-15] MEDS: Topiramate 25 MG TABLET PO SCH ×2 (08:35→21:42)
[2017-11-15] MEDS: Lisinopril 20 MG TABLET PO SCH (08:36)
--- NOTE | 2017-11-15 11:31 | Psychiatry Progress Note ---
Date of Encounter: 11/15/17 Time of Encounter: 11:25 Subjective Interval history: Client still manic. Pleasant but hypersexual and delusional. Talks to self. Refers to herself as "mom" and gives herself orders like "mom, just take a shower so they can't hold that over you." Not bathing here. Nursing staff have been working with her daily to get clean. Client is anxious about her probate hearing coming up. Wants to leave. Does not think she needs medications. Only wants to take diet pills and "sex pills." Invega dose increased yesterday. Plan is for a long acting injection. Review of Systems Constitutional: Denies: fever, chills, weakness, weight change Eyes: Denies: eye pain, vision change Ears, Nose, Throat: Denies: ear pain, throat pain, dental pain, hearing loss, congestion Cardiovascular: Denies: chest pain, palpitations, dyspnea on exertion Respiratory: Denies: cough, dyspnea, wheezes Gastrointestinal: Denies: abdominal pain, nausea, vomiting, diarrhea, constipation Musculoskeletal: Reports: joint pain Neurological: Reports: abnormal gait Psychiatric: Reports: anxiety, auditory hallucinations, confusion, difficulty concentrating, hopelessness, mood swings, other (Paranoid delusions) Results - Vital Signs Vital Signs: Temp Pulse Resp BP Pulse Ox 98 F 119 16 107/78 98 11/15/17 09:00 11/15/17 09:00 11/15/17 09:00 11/15/17 09:00 11/06/17 14:59 Assessment and Plan (1) Bipolar disorder with psychotic features Current visit: Yes Status: Acute Plan: Continue hospitalization, Close observation, Suicide Precautions per unit protocol, Encourage participation in unit milieu, Group Therapy, Monitor sleep, Monitor appetite Risks, benefits, side effects, alternatives discussed w/pt: Yes Patient agreeable to treatment: Yes Consult Discharge Plan - Plan Additional Instructions: 11/12: - start invega 3 mg po qam - will taper off haldol if pt respodning to invega - middle or intermediate school principal goal of LA injection invega if pt tolerates well - on probate 11/11 - increase depakote - increase hadol to 0.5 mg TID to help with ongoign paranoia nd delusions if pt doesnt respond to this may consider started invega oral so pt can get montly injection [facility] - 11/20/17 3:00 pm (The above appointment is with Bill, for mental health counseling. Please bring photo ID and insurance card. You will also see Clint Lopez for psychiatric assessment and medication management on 12/15/2017 at 8:30am. You must keep one counseling appointment per month to be able to see the psychiatry provider.) Jeny Childers MD [Non-Partnered Physician] - 11/19/17 1:30 pm (The above appointment is with Dr. Childers for primary care and medication management. Please bring photo ID and insurance card. ) Psychiatry Exam - Constitutional Vitals: Temp Pulse Resp BP Pulse Ox 98 F 119 16 107/78 98 11/15/17 09:00 11/15/17 09:00 11/15/17 09:00 11/15/17 09:00 11/06/17 14:59 General appearance: age & developmentally appropriate - Musculoskeletal Gait: unsteady Station: relaxed Strength & Tone: normal for patient - Psychiatric Patient Orientation: Yes Person, Yes Time, Yes Place Level of alertness: Alert Behavior: calm, cooperative Psychomotor activity: Normal Eye Contact: Maintains Eye Contact Mood Description: Elevated Affect description: congruent with mood Speech Volume: Normal Speech pattern: normal rate, normal rhythm, normal tone, fluent, spontaneous Language & Vocabulary: consistent with education Thought Process: Perseveration Thought Content: No Suicidal ideation, No Homicidal ideation, Yes Overt delusions Perceptual Disturbances: Yes Reacting to internal stimuli Attention Span Ability: Capable of Focused Attention Memory Description: Grossly Intact Patient Reliability: Questionable Historian Fund of knowledge: Yes abstraction ability, Yes aware of current events Intelligence Estimate: Average Judgment: Limited Insight: Minimal
[2017-11-16] MEDS: hydroCHLOROthiazide 25 MG TABLET PO SCH (08:53)
[2017-11-16] MEDS: Divalproex (12 HR) 250 MG TABLET PO SCH ×3 (08:53→20:42)
[2017-11-16] MEDS: Lisinopril 20 MG TABLET PO SCH (08:53)
[2017-11-16] MEDS: amLODIPine 5 MG TABLET PO SCH (08:53)
[2017-11-16] MEDS: Topiramate 25 MG TABLET PO SCH ×2 (08:54→20:42)
[2017-11-16] MEDS: Ibuprofen 400 MG TABLET PO PRN (13:58)
--- NOTE | 2017-11-16 14:52 | Psychiatry Progress Note ---
Date of Encounter: 11/16/17 Time of Encounter: 14:30 Subjective Interval history: The patient is a 62-year-old white female. Chief complaint: I think that my has sister Fransisco. I think he is to another woman. They say that it is my daughter but I know that it is not she has been replaced. History of present illness. The patient is a poor historian. Nonetheless she can tell me that she spent 3 weeks in the [facility]. These records are not immediately available to me. The patient has indicated that she has had a psychiatric disturbance since her late 30s. At that time she had a hysterectomy. Since that time perhaps she has had 6 hospitalizations. Some of these had a 30 day stay. In the past the patient was placed on a long-acting injectable antipsychotic. But the patient does not believe that she has a psychiatric illness. She does not think that she has schizophrenia. She does not think that she needs medicines. She thinks the medicines only interfere with her ability to take care of herself and slow her down. On the unit the patient has remained delusional. These are beliefs are discussed above. She has ideas of reference. These come from TV shows. The patient has been described as hypersexual and hyperverbal. However today she is somewhat disorganized and confused. The patient does not believe that she has medications prescribed for psychiatric disorder and denies this. The patient has not showered and has shown an ill inability to complete her ADLs. She has a probate hearing on November 17. Problem #1 schizophrenia disorganized type. The patient has a chronic course of schizophrenia. She has poverty of thought disorganized content concrete thinking loose association. She has a [place] delusion. That is that her daughter is replaced by an impostor. She has paranoid ideation. She believes that her is involved in multiple outside relationships even though this is possible it is highly improbable. The patient has auditory hallucinations and gets messages that her is unfaithful. She denies thought insertion or thought withdrawal or delusions of passive bitty. Overall her behavior is grossly disorganized. The diagnosis of bipolar disorder given cross-sectionally may be helpful but the patient appears to have a chronic deteriorating course. Problem #2 noncompliance. The patient is noncompliant with her treatment she is stopped in vague assist a. She is refused to take medicines even though family has encouraged her to she has [facility] yet has not met up with them. Problem #3 wandering. 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 The family has to keep track of her. Wandering continues to be a problem and if released is likely presented danger to herself and others. Problem #4 osteoarthritis I lateral knees. This is shown by x-ray report and the patient's gait. She tends to walk back and forth with a slow leg gait but this does not appear to be EPS. Review of Systems Psychiatric: Reports: anxiety, auditory hallucinations, confusion, difficulty concentrating, hopelessness, mood swings, other (Paranoid delusions) Results - Vital Signs Vital Signs: Temp Pulse Resp BP Pulse Ox 96.7 F L 114 18 145/105 98 11/16/17 09:00 11/16/17 09:00 11/16/17 09:00 11/16/17 09:00 11/06/17 14:59 Assessment and Plan (1) Disorganized schizophrenia Current visit: Yes Status: Acute Plan: Continue hospitalization, Close observation, Suicide Precautions per unit protocol, Encourage participation in unit milieu, Group Therapy, Monitor sleep, Monitor appetite, Secure weapons Risks, benefits, side effects, alternatives discussed w/pt: Yes (2) Wandering associated with mental disorder Current visit: Yes Status: Acute Plan: Continue hospitalization, Close observation, Suicide Precautions per unit protocol, Secure weapons, Family/Supportive other meeting Risks, benefits, side effects, alternatives discussed w/pt: Yes Patient agreeable to treatment : Yes (3) Patient's noncompliance with other medical treatment and regimen Current visit: Yes Status: Chronic Plan: Continue hospitalization, Close observation, Group Therapy, Family/ Supportive other meeting Risks, benefits, side effects, alternatives discussed w/pt: Yes Patient agreeable to treatment: Yes (4) Osteoarthritis of knees, bilateral Current visit: Yes Status: Acute Plan: Continue hospitalization, Monitor appetite Risks, benefits, side effects , alternatives discussed w/pt: Yes Patient agreeable to treatment: Yes Qualifiers: Osteoarthritis type: unspecified Qualified Code(s): M17.0 - Bilateral primary osteoarthritis of knee Consult Discharge Plan - Plan Additional Instructions: 11/12: - start invega 3 mg po qam - will taper off haldol if pt respodning to invega - assisted goal of LA injection invega if pt tolerates well - on probate 11/11 - increase depakote - increase hadol to 0.5 mg TID to help with ongoign paranoia nd delusions if pt doesnt respond to this may consider started invega oral so pt can get montly injection Referrals: Makenzie Samaniego [facility] [Outside] - 11/20/17 3:00 pm (The above appointment is with Bill for mental health counseling. Please bring photo ID and insurance card. You will also see Clint Jessica for psychiatric assessment and medication management on 12/15/2017 at 8:30am. You must keep one counseling appointment per month to be able to see the psychiatry provider.) Jeny Childers MD [Non-Partnered Physician] - 11/19/17 1:30 pm (The above appointment is with Dr. Childers for primary care and medication management. Please bring photo ID and insurance card. ) Psychiatry Exam - Constitutional Vitals: Temp Pulse Resp BP Pulse Ox 96.7 F L 114 18 145/105 98 11/16/17 09:00 11/16/17 09:00 11/16/17 09:00 11/16/17 09:00 11/06/17 14:59 General appearance: malodorous, average - Musculoskeletal Gait: slow Station: other Strength & Tone: normal for patient - Psychiatric Patient Orientation: Yes Person, Yes Time, Yes Place Level of alertness: Alert Behavior: suspicious Psychomotor activity: Slowed Eye Contact: Minimal Contact Mood Description: Labile Affect description: constricted Speech Volume: Normal Speech pattern: normal tone, impoverished Language & Vocabulary: limited Thought Process: Tangential, [place] Thought Content: Yes Overt delusions, Yes Ideas of reference, Yes Preoccupation , Yes Paranoid delusion Perceptual Disturbances: Yes Auditory hallucinations Attention Span Ability: Capable of Sustained Attention Memory Description: Immediate Impaired, Remote Impaired Patient Reliability: Not Reliable Historian Fund of knowledge: Yes below average Intelligence Estimate: Below Average Judgment: Limited Insight: Minimal
[2017-11-17] MEDS: Divalproex (12 HR) 250 MG TABLET PO SCH ×3 (09:21→20:49)
[2017-11-17] MEDS: amLODIPine 5 MG TABLET PO SCH (09:21)
[2017-11-17] MEDS: hydroCHLOROthiazide 25 MG TABLET PO SCH (09:21)
[2017-11-17] MEDS: Lisinopril 20 MG TABLET PO SCH (09:21)
[2017-11-17] MEDS: Topiramate 25 MG TABLET PO SCH ×2 (09:21→20:50)
--- NOTE | 2017-11-17 14:58 | Psychiatry Progress Note ---
Date of Encounter: 11/17/17 Time of Encounter: 14:00 Subjective Interval history: ID patient 62-year-old white female. She is involuntarily hospitalized with a forced medication order. Chief complaint I could not afford the in [place]. My friend said it did not help me read History of present illness. The patient and a court hearing today in that hearing she stated that paliperidone did not help her. She received the injection but her insurance would not pay for this injection and cost a lot of money. The patient says that she does not trust her family. The patient has been on Depakote Haldol Topamax and paliperidone. She is resistant to taking medicine paliperidone based on the reasons above. The patient does not think that she has a psychiatric disorder and thinks that she is here for only rest and relax relaxation. She indicates that she is not is willing to participate in groups or to talk to others as he tends to get her in trouble. The patient like to be discharged but the patient's transactional attorney has asked her to cooperate. A family meeting could be scheduled within 2-3 days. As of last week the family indicated that she was not at baseline. The patient does not see this. Review of Systems Psychiatric: Reports: anxiety, auditory hallucinations, confusion, difficulty concentrating, hopelessness, mood swings, other (Paranoid delusions) Results - Vital Signs Vital Signs: Temp Pulse Resp BP Pulse Ox 97.7 F 114 16 124/83 98 11/17/17 09:00 11/17/17 09:00 11/17/17 09:00 11/17/17 09:00 11/06/17 14:59 Assessment and Plan (1) Disorganized schizophrenia Current visit: Yes Status: Acute Plan: Continue hospitalization, Close observation, Suicide Precautions per unit protocol Risks, benefits, side effects, alternatives discussed w/pt: Yes Patient agreeable to treatment: Yes (2) Wandering associated with mental disorder Current visit: Yes Status: Acute Plan: Continue hospitalization, Encourage participation in unit milieu, Family/ Supportive other meeting Risks, benefits, side effects, alternatives discussed w/pt: Yes Patient agreeable to treatment: Yes (3) Patient's noncompliance with other medical treatment and regimen Current visit: Yes Status: Chronic Plan: Continue hospitalization, Encourage participation in unit milieu, Group Therapy Risks, benefits, side effects, alternatives discussed w/pt: Yes Patient agreeable to treatment: Yes (4) Osteoarthritis of knees, bilateral Current visit: Yes Status: Chronic Plan: Continue hospitalization, Encourage participation in unit milieu Risks, benefits, side effects, alternatives discussed w/pt: Yes Patient agreeable to treatment: Yes Qualifiers: Osteoarthritis type: unspecified Qualified Code(s): M17.0 - Bilateral primary osteoarthritis of knee Consult Discharge Plan - Plan Referrals: [facility] [Outside] - 11/20/17 3:00 pm (The above appointment is with Bill for mental health counseling. Please bring photo ID and insurance card. You will also see Clint Lopez for psychiatric assessment and medication management on 12/15/2017 at 8:30am. You must keep one counseling appointment per month to be able to see the psychiatry provider.) Jeny Childers MD [Non-Partnered Physician] - 11/19/17 1:30 pm (The above appointment is with Dr. Childers for primary care and medication management. Please bring photo ID and insurance card. ) Psychiatry Exam - Constitutional Vitals: Temp Pulse Resp BP Pulse Ox 97.7 F 114 16 124/83 98 11/17/17 09:00 11/17/17 09:00 11/17/17 09:00 11/17/17 09:00 11/06/17 14:59 General appearance: age & developmentally appropriate, well-groomed, well- nourished - Musculoskeletal Gait: slow Station: relaxed Strength & Tone: normal for patient - Psychiatric Patient Orientation: Yes Person, Yes Time, Yes Place Level of alertness: Alert Behavior: calm, cooperative Psychomotor activity: Normal Eye Contact: Maintains Eye Contact Mood Description: Euthymic/stable Affect description: congruent with mood, full range Speech Volume: Normal Speech pattern: normal rate, normal rhythm, normal tone, fluent, spontaneous Language & Vocabulary: consistent with education Thought Process: Linear, Goal Oriented Thought Content: No Suicidal ideation, No Homicidal ideation, No Overt delusions , Yes Ideas of reference, Yes Paranoid delusion, Yes Catholic delusion Perceptual Disturbances: Yes Auditory hallucinations, No Visual hallucinations Attention Span Ability: Capable of Focused Attention Memory Description: Grossly Intact, Immediate Impaired, Remote Impaired Patient Reliability: Reliable Historian Fund of knowledge: Yes below average, Yes aware of current events Judgment: Fair Insight: Partial
[2017-11-17] MEDS: Ibuprofen 400 MG TABLET PO PRN (20:49)
[2017-11-17] MEDS: hydrOXYzine pamoate 25 MG CAPSULE PO PRN (20:50)
[2017-11-18] MEDS: amLODIPine 5 MG TABLET PO SCH (09:19)
[2017-11-18] MEDS: Topiramate 25 MG TABLET PO SCH (09:20)
[2017-11-18] MEDS: hydroCHLOROthiazide 25 MG TABLET PO SCH (09:20)
[2017-11-18] MEDS: Divalproex (12 HR) 250 MG TABLET PO SCH ×2 (09:21→14:46)
[2017-11-18] MEDS: Lisinopril 20 MG TABLET PO SCH (09:21)
--- NOTE | 2017-11-18 17:03 | Psychiatry Progress Note ---
Date of Encounter: 11/18/17 Time of Encounter: 15:00 Subjective Interval history: The patient is a 62-year-old white female. Chief complaint: I am very tired I think it is that medicine is making me tired. History of present illness:. The patient has continued to have paranoia she has been suspicious of family members. She has been taking in [place] but believes that it is causing her excess sedation. She is previously refused to take an vague assist Cristin but has a forced medication order. The patient's has called in. He notes that her illness is harder to treatment without being on in [place] that she is noncompliant and that she tends to wander. The records from [facility] in [facility] were reviewed .. While the history differ slightly the patient has presented with the same form of psychosis that is disorganized thinking paranoid ideation and delusions of persecution and grossly disorganized behavior. This includes wandering and noncompliance. The patient was treated with paliperidone monotherapy and improve sufficiently to be discharged no longer meeting criteria. In this interval the patient has been rehospitalized in we have compared the medications between her last hospitalization and this will. It is very likely that the patient has developed an adverse reaction or drug drug interaction to Depakote and topiramate as these were not present. Review of Systems Psychiatric: Reports: anxiety, abnormal sleep pattern, auditory hallucinations, confusion, difficulty concentrating, hopelessness, mood swings, other (Paranoid delusions) Results - Vital Signs Vital Signs: Temp Pulse Resp BP Pulse Ox 96.9 F L 109 18 139/91 98 11/18/17 09:49 11/18/17 09:49 11/18/17 09:49 11/18/17 09:49 11/06/17 14:59 Assessment and Plan (1) Disorganized schizophrenia Current visit: Yes Status: Acute Plan: Continue hospitalization, Close observation, Encourage participation in unit milieu Risks, benefits, side effects, alternatives discussed w/pt: Yes Patient agreeable to treatment: Yes (2) Wandering associated with mental disorder Current visit: Yes Status: Acute Plan: Close observation, Encourage participation in unit milieu, Group Therapy, Secure weapons, Family/Supportive other meeting Risks, benefits, side effects , alternatives discussed w/pt: Yes Patient agreeable to treatment: Yes (3) Patient's noncompliance with other medical treatment and regimen Current visit: Yes Status: Chronic Plan: Continue hospitalization, Monitor sleep, Family/Supportive other meeting Risks, benefits, side effects, alternatives discussed w/pt: Yes Patient agreeable to treatment: Yes (4) Osteoarthritis of knees, bilateral Current visit: Yes Status: Chronic Plan: Encourage participation in unit milieu Risks, benefits, side effects, alternatives discussed w/pt: Yes Patient agreeable to treatment: Yes Qualifiers: Osteoarthritis type: unspecified Qualified Code(s): M17.0 - Bilateral primary osteoarthritis of knee Consult Discharge Plan - Plan Referrals: [facility] [Outside] - 12/04/17 1:00 pm (The above appointment is with Bill for mental health counseling. Please bring photo ID and insurance card. You will also see Clint Lopez for psychiatric assessment and medication management on 12/15/2017 at 8:30am. You must keep one counseling appointment per month to be able to see the psychiatry provider.) Jeny Childers MD [Non-Partnered Physician] - 11/19/17 1:30 pm (The above appointment is with Dr. Childers for primary care and medication management. Please bring photo ID and insurance card. ) Psychiatry Exam - Constitutional Vitals: Temp Pulse Resp BP Pulse Ox 96.9 F L 109 18 139/91 98 11/18/17 09:49 11/18/17 09:49 11/18/17 09:49 11/18/17 09:49 11/06/17 14:59 General appearance: age & developmentally appropriate - Musculoskeletal Gait: slow Station: stooped Strength & Tone: normal for patient - Psychiatric Patient Orientation: Yes Person, Yes Time, Yes Place Level of alertness: Sedated Behavior: calm, cooperative Psychomotor activity: Normal Eye Contact: Minimal Contact Mood Description: Irritable, Other Affect description: blunted Speech Volume: Soft/Quiet Speech pattern: normal rate Language & Vocabulary: consistent with education Thought Process: Logical, Loose Associations, [place] Thought Content: Yes Overt delusions, Yes Paranoid delusion, Yes Synagogue delusion Perceptual Disturbances: Yes Auditory hallucinations Attention Span Ability: Unable to Sustain Attention Memory Description: Grossly Intact Patient Reliability: Not Reliable Historian Fund of knowledge: Yes average Intelligence Estimate: Average Judgment: Limited Insight: Minimal
[2017-11-18] MEDS: traZODone 50 MG TABLET PO PRN (20:49)
[2017-11-18] MEDS: hydrOXYzine pamoate 25 MG CAPSULE PO PRN (20:49)
[2017-11-19] MEDS: amLODIPine 5 MG TABLET PO SCH (08:47)
[2017-11-19] MEDS: hydroCHLOROthiazide 25 MG TABLET PO SCH (08:48)
[2017-11-19] MEDS: Lisinopril 20 MG TABLET PO SCH (08:48)
[2017-11-19] MEDS ORDERED: (Paliperidone Palmitate [Invega Sustenna] 156 MG) IM SCH (11:15)
--- NOTE | 2017-11-19 12:45 | Psychiatry Progress Note ---
Date of Encounter: 11/19/17 Time of Encounter: 12:30 Subjective Interval history: D the patient is a 62-year-old white female. Chief complaint I need to get back on that Adipex I can go down to [place], [place] to get it. History of present illness. The patient thinks that Adipex helps her knee pain she does not think that it causes hallucinations or delusions. She notes that she would like to go home to her dog ladybugs. She says that this is a therapy dog and this helps her to feel calm her. The patient was on the phone with her and appeared to have a reasonable conversation. He comes to visit her. He has wanted plan that involved long-acting injectable antipsychotic. In this case is paliperidone. The patient notes that paliperidone helps her when she took 60 mg per day she cannot say what happened afterwards and she did not denies noncompliance but the record seems to indicate worsening of symptoms either due to noncompliance and also episodes of wandering associated with the worsening of psychosis. Nonetheless patient was willing to take this long- acting injectable form of the medicine. I explained to her that it may be the topiramate and Depakote that was responsible for sedation. The patient is interested in going home and more motivated to follow-up on an outpatient basis. She says that she can arrange her medicines and that she puts letters on top of the bottles in order to indicate that they are nonetheless the med box may be helpful for her. I had originally considered a stay of 7-10 days but if long-acting injectable antipsychotics are initiated she tolerates this than an earlier discharge could be considered. The patient has been here since November 06 and this is her second or third hospitalization in 2018 Review of Systems Psychiatric: Reports: anxiety, abnormal sleep pattern, auditory hallucinations, difficulty concentrating, mood swings Results - Vital Signs Vital Signs: Temp Pulse Resp BP Pulse Ox 97.9 F 109 16 123/89 98 11/19/17 09:00 11/19/17 09:00 11/19/17 09:00 11/19/17 09:00 11/06/17 14:59 Assessment and Plan (1) Disorganized schizophrenia Current visit: Yes Status: Acute Plan: Continue hospitalization, Close observation, Suicide Precautions per unit protocol, Encourage participation in unit milieu, Group Therapy Risks, benefits, side effects, alternatives discussed w/pt: Yes Patient agreeable to treatment: Yes (2) Wandering associated with mental disorder Current visit: Yes Status: Acute Plan: Continue hospitalization, Suicide Precautions per unit protocol, Secure weapons Risks, benefits, side effects, alternatives discussed w/pt: Yes Patient agreeable to treatment: Yes (3) Patient's noncompliance with other medical treatment and regimen Current visit: Yes Status: Chronic Plan: Suicide Precautions per unit protocol, Encourage participation in unit milieu, Secure weapons, Family/Supportive other meeting Risks, benefits, side effects, alternatives discussed w/pt: Yes Patient agreeable to treatment: Yes (4) Osteoarthritis of knees, bilateral Current visit: Yes Status: Chronic Plan: Monitor sleep, Monitor appetite Risks, benefits, side effects, alternatives discussed w/pt: Yes Patient agreeable to treatment: Yes Qualifiers: Osteoarthritis type: unspecified Qualified Code(s): M17.0 - Bilateral primary osteoarthritis of knee Consult Discharge Plan - Plan Referrals: [facility] [Outside] - 12/04/17 1:00 pm (The above appointment is with Bill for mental health counseling. Please bring photo ID and insurance card. You will also see Clint Lopez for psychiatric assessment and medication management on 12/15/2017 at 8:30am. You must keep one counseling appointment per month to be able to see the psychiatry provider.) Jeny Childers MD [Non-Partnered Physician] - 12/03/17 1:00 pm (The above appointment is with Dr. Childers for primary care and medication management. Please bring photo ID and insurance card. ) Psychiatry Exam - Constitutional Vitals: Temp Pulse Resp BP Pulse Ox 97.9 F 109 16 123/89 98 11/19/17 09:00 11/19/17 09:00 11/19/17 09:00 11/19/17 09:00 11/06/17 14:59 General appearance: age & developmentally appropriate, well-groomed, well- nourished - Musculoskeletal Gait: slow Station: stooped Strength & Tone: mild weakness - Psychiatric Patient Orientation: Yes Person, Yes Time, Yes Place Level of alertness: Alert Psychomotor activity: Slowed Eye Contact: Maintains Eye Contact Mood Description: Irritable Affect description: congruent with mood, full range Speech Volume: Normal Speech pattern: normal rate, normal rhythm, normal tone, fluent, spontaneous Language & Vocabulary: consistent with education Thought Process: Linear, Goal Oriented Thought Content: Yes Paranoid delusion Perceptual Disturbances: Yes Auditory hallucinations Attention Span Ability: Capable of Sustained Attention Memory Description: Immediate Intact, Recent Intact, Remote Impaired Patient Reliability: Questionable Historian Fund of knowledge: Yes average Intelligence Estimate: Average Judgment: Limited Insight: Minimal
[2017-11-19] MEDS: traZODone 50 MG TABLET PO PRN (21:15)
[2017-11-20] MEDS: amLODIPine 5 MG TABLET PO SCH (09:05)
[2017-11-20] MEDS: hydroCHLOROthiazide 25 MG TABLET PO SCH (09:05)
[2017-11-20] MEDS: Lisinopril 20 MG TABLET PO SCH (09:05)
[2017-11-20] MEDS: Ibuprofen 400 MG TABLET PO PRN (10:10)
--- NOTE | 2017-11-20 15:01 | Psychiatry Progress Note ---
Date of Encounter: 11/20/17 Time of Encounter: 15:00 Subjective Interval history: ID the patient is 62-year-old white female. Chief complaint I still want to go on Adipex. History of present illness. The patient has improved and is more cooperative. But in discussion determining that if she stopped her medicine she get a divorce. Her meanwhile has been concerned about her noncompliance and her tendency to go to drug abuse social worker Gutierrez to take Adipex patient thinks Adipex helps her knee pain. But she has been advised against this. The patient 's been advised to continue taking the long-acting paliperidone. Efforts will be made to continue this on a monthly basis and I will recommend to her that she take it once a month for 1 year and then her treating provider can advise her on other options. One of the other options is Invega Trinza Long-acting injectable to 90 days Review of Systems Psychiatric: Reports: anxiety, abnormal sleep pattern, auditory hallucinations, difficulty concentrating, mood swings Results - Vital Signs Vital Signs: Temp Pulse Resp BP Pulse Ox 97.9 F 121 14 139/109 98 11/20/17 09:00 11/20/17 09:00 11/20/17 09:00 11/20/17 09:00 11/06/17 14:59 Assessment and Plan (1) Disorganized schizophrenia Current visit: Yes Status: Acute Plan: Continue hospitalization, Close observation, Suicide Precautions per unit protocol, Encourage participation in unit milieu Risks, benefits, side effects , alternatives discussed w/pt: Yes Patient agreeable to treatment: Yes (2) Wandering associated with mental disorder Current visit: Yes Status: Acute Plan: Close observation, Encourage participation in unit milieu, Secure weapons Risks, benefits, side effects, alternatives discussed w/pt: Yes Patient agreeable to treatment: Yes (3) Patient's noncompliance with other medical treatment and regimen Current visit: Yes Status: Chronic Plan: Family/Supportive other meeting Risks, benefits, side effects, alternatives discussed w/pt: Yes Patient agreeable to treatment: Yes (4) Osteoarthritis of knees, bilateral Current visit: Yes Status: Chronic Plan: Monitor sleep Risks, benefits, side effects, alternatives discussed w/pt : Yes Patient agreeable to treatment: Yes Qualifiers: Osteoarthritis type: unspecified Qualified Code(s): M17.0 - Bilateral primary osteoarthritis of knee Consult Discharge Plan - Plan Additional Instructions: Invega Sustenna 156 mg was given on 11/19/2017. Next dose of Invega Sustenna 156 mg is due 12/17/2017. Referrals: Makenzie Leal [facility] [Outside] - 12/04/17 1:00 pm (The above appointment is with Bill, for mental health counseling. Please bring photo ID and insurance card. You will also see Clint Lopez for psychiatric assessment and medication management on 12/15/2017 at 8:30am. You must keep one counseling appointment per month to be able to see the psychiatry provider.) Jeny Childers MD [Non-Partnered Physician] - 12/03/17 1:00 pm (The above appointment is with Dr. Childers for primary care and medication management. Please bring photo ID and insurance card. ) Psychiatry Exam - Constitutional Vitals: Temp Pulse Resp BP Pulse Ox 97.9 F 121 14 139/109 98 11/20/17 09:00 11/20/17 09:00 11/20/17 09:00 11/20/17 09:00 11/06/17 14:59 General appearance: age & developmentally appropriate, well-groomed, well- nourished - Musculoskeletal Gait: normal Station: relaxed Strength & Tone: normal for patient - Psychiatric Patient Orientation: Yes Person, Yes Time, Yes Place Level of alertness: Alert Behavior: calm, cooperative Psychomotor activity: Normal Eye Contact: Maintains Eye Contact Mood Description: Irritable Affect description: congruent with mood, full range Speech Volume: Normal Speech pattern: normal rate, normal rhythm, normal tone, fluent, spontaneous Language & Vocabulary: consistent with education Thought Process: Linear, Goal Oriented Thought Content: No Suicidal ideation, No Homicidal ideation, No Overt delusions , Yes Ideas of reference, Yes Paranoid delusion, Yes Grandiose delusion Perceptual Disturbances: Yes Auditory hallucinations, No Visual hallucinations Attention Span Ability: Capable of Focused Attention Memory Description: Grossly Intact, Remote Intact Patient Reliability: Not Reliable Historian Fund of knowledge: Yes abstraction ability, Yes aware of current events Intelligence Estimate: Average Judgment: Limited Insight: Minimal
[2017-11-20] MEDS: traZODone 50 MG TABLET PO PRN (21:55)
[2017-11-21] MEDS: Lisinopril 20 MG TABLET PO SCH (08:13)
[2017-11-21] MEDS: hydroCHLOROthiazide 25 MG TABLET PO SCH (08:13)
[2017-11-21] MEDS: amLODIPine 5 MG TABLET PO SCH (08:13)
[2017-11-21] MEDS: Ibuprofen 400 MG TABLET PO PRN (09:17)
--- NOTE | 2017-11-21 09:42 | Discharge Summary ---
Date of Encounter: 11/21/17 Time of Encounter: 09:37 Diagnosis - Discharge Diagnosis (1) Bipolar disorder with psychotic features Status: Acute Medications - Discharge Medications Prescriptions: amLODIPine [Norvasc] 10 mg PO DAILY #28 tablet Haloperidol [Haldol] 0.5 mg PO TID #21 tablet hydroCHLOROthiazide [Hydrochlorothiazide] 25 mg PO DAILY #14 tablet Lisinopril [Zestril] 20 mg PO DAILY #14 tablet Meloxicam [Mobic] 15 mg PO DAILY #28 tablet Paliperidone [Invega] 6 mg PO DAILY #14 tab.[id number] Topiramate [Topamax] 25 mg PO BID 11/06/17 [History] Haloperidol [Haldol] 0.5 mg PO TID #21 tablet 11/21/17 [Rx] Lisinopril [Zestril] 20 mg PO DAILY #14 tablet 11/21/17 [Rx] Meloxicam [Mobic] 15 mg PO DAILY #28 tablet 11/21/17 [Rx] Paliperidone [Invega] 6 mg PO DAILY #14 tab.er.[id number] 11/21/17 [Rx] Patient Taking Own Medication 156 each IM QMONTH each 11/21/17 [Rx] amLODIPine [Norvasc] 10 mg PO DAILY #28 tablet 11/21/17 [Rx] hydroCHLOROthiazide [Hydrochlorothiazide] 25 mg PO DAILY #14 tablet 11/21/17 [Rx ] 3 Allergy/AdvReac Type Severity Reaction Status Date / Time No Known Allergies Allergy Verified 11/06/17 22:42 Provider Date of admission: 11/06/17 18:46 Primary care physician: PCP NONE Discharging clinician: Liyah Mccloud Psychiatry Exam - Constitutional Vitals: Temp Pulse Resp BP Pulse Ox 97.0 F L 98 18 138/93 98 11/20/17 19:51 11/20/17 19:51 11/20/17 19:51 11/20/17 19:51 11/06/17 14:59 General appearance: age & developmentally appropriate, well-groomed, well- nourished - Musculoskeletal Gait: normal Station: relaxed Strength & Tone: normal for patient - Psychiatric Patient Orientation: Yes Person, Yes Time, Yes Place Level of alertness: Alert Behavior: calm, cooperative Psychomotor activity: Normal Eye Contact: Maintains Eye Contact Mood Description: Euthymic/stable Affect description: congruent with mood Speech Volume: Normal Speech pattern: normal rate, normal rhythm, normal tone, fluent, spontaneous Language & Vocabulary: consistent with education Thought Process: Goal Oriented, Perseveration Thought Content: No Suicidal ideation, No Homicidal ideation Perceptual Disturbances: No Auditory hallucinations, No Visual hallucinations Attention Span Ability: Capable of Focused Attention Memory Description: Grossly Intact Patient Reliability: Reliable Historian Fund of knowledge: Yes abstraction ability, Yes aware of current events Intelligence Estimate: Average Judgment: Fair Insight: Partial Hospital Course Hospital course: Ms. Alvarez is a 62 year old female admitted secondary to anahy and psychosis. This investigative writer saw her last weekend but has not seen her in a week. She is much improved. No longer talking to herself. Thoughts are more organized. Keeping herself clean and showered this morning. Still focused on sexual issues but more easy to redirect. Understands she cannot take Adipex and says she won't. aware of the dangers of client taking this medication as well. Client still asking about herbs to treat sexual dysfunction but agreeable to not taking anything without clearing with her doctor first. Has already had a Sustenna injection and has a script for the next one which is due 12/17/17. Denies SI/HI. Denies AH/VH. Pleasant today. - Time Spent with Patient Total time spent providing and/or coordinating discharge services: Assessment and Plan - Patient/Caregiver Discharge Instructions Activity: resume usual activities as tolerated Diet: regular diet Additional Instructions: Invega Sustenna 156 mg was given on 11/19/2017. Next dose of Invega Sustenna 156 mg is due 12/17/2017. - Follow up Plan Follow up with: Makenzie Leal [facility] [Outside] - 12/04/17 1:00 pm (The above appointment is with Bill for mental health counseling. Please bring photo ID and insurance card. You will also see Clint Lopez for psychiatric assessment and medication management on 12/15/2017 at 8:30am. You must keep one counseling appointment per month to be able to see the psychiatry provider.) Jeny Childers MD [Non-Partnered Physician] - 12/03/17 1:00 pm (The above appointment is with Dr. Childers for primary care and medication management. Please bring photo ID and insurance card. ) Functional capacity at discharge: independent ambulation Overall status at discharge: Stable Disposition: Home, Self-Care Quality - Multiple Antipsychotics Patient discharged on 2 or more antipsychotic medications: Yes - Justification Documentation of: History 3 failed trials of monotherapy (Haldol, Invega, Sustenna) Procedures - Procedures Procedures: Medication Management, Crisis Stabilization, Supportive Therapy, Group Therapy
[2017-11-21 10:16] VITALS: BP 111/83
== END 2017-11-21 10:25 | disposition home or self-care (01) | DRG 885 ==
LOC: EMEROO 10:08 → 1ANU 18:46 → SUATTDRO 18:46 → 1ANU 20:32
PROVIDERS: ADMIT Psychiatry & Neurology Psychiatry; ATTEND Psychiatry & Neurology Forensic Psychiatry

== ENCOUNTER 2019-05-11 08:41 | Observation (INO) ==
[~2019-05-11 08:41] MED LIST: Total Joint Mixture (50 ml) IR ONE
[2019-05-11] MEDS ORDERED: Acetaminophen IV 1,000 MG/100 ML INFUS..BTL IVPB ONE (09:11)
[2019-05-11] MEDS ORDERED: Celecoxib 100 MG CAPSULE PO ONE (09:11)
[2019-05-11] MEDS ORDERED: Pregabalin 75 MG CAPSULE PO ONE (09:11)
[2019-05-11] MEDS ORDERED: Ringers Solution, Lactated 1,000 ML IVC SCH ×2 (09:15→15:16)
[2019-05-11] MEDS ORDERED: Propofol 500 MG/50 ML INFUS..BTL ONE (09:16)
[2019-05-11] MEDS ORDERED: Ondansetron 4 MG/2 ML VIAL ONE ×2 (09:18→10:59)
[2019-05-11] MEDS ORDERED: Dexamethasone 4 MG/ML VIAL ONE ×2 (09:18→10:59)
[2019-05-11] MEDS ORDERED: CeFAZolin Syr 2,000MG/20 ML 2,000 MG/20 ML SYRINGE IVPB ONE (09:18)
[2019-05-11] MEDS ORDERED: Lidocaine -MPF 2% 2 ML VIAL ONE (09:18)
[2019-05-11] MEDS ORDERED: *HR* FentaNYL (PF) 100 MCG/2 ML VIAL ONE (09:23)
[2019-05-11] MEDS ORDERED: *HR* Midazolam HCl 2 MG/2 ML VIAL ONE (09:23)
[2019-05-11 09:30] LABS: Hematocrit 34.2 % (35.3-44.9)
[2019-05-11] MEDS ORDERED: ROPIVACAINE/PF/NS 0.25% 1 EACH SYRINGE INTRAART ONE (10:02)
[2019-05-11] MEDS ORDERED: EPINEPHrine 1 MG/ML VIAL ONE (10:09)
[2019-05-11] MEDS ORDERED: Lidocaine -MPF 1% 5 ML AMPUL ONE (10:28)
[2019-05-11] MEDS ORDERED: Ethanol\\Acetic Acid\\Na Ace\\Ben 1,000 ML IRRIG.SOLN IR ONE (10:37)
[2019-05-11] MEDS ORDERED: Tranexamic Acid 1,000 MG/10 ML VIAL ONE (11:08)
[2019-05-11] MEDS ORDERED: *HR* Promethazine 25 MG/ML VIAL IVP PRN ×2 (11:22→15:16)
[2019-05-11] MEDS ORDERED: *HR* OxyCODONE Immed Rel 5 MG TABLET PO PRN (11:22)
[2019-05-11] MEDS ORDERED: Ondansetron 4 MG/2 ML VIAL IVP ONE (11:22)
[2019-05-11] MEDS ORDERED: EPHEDrine 50 MG/ML VIAL ONE (11:45)
[2019-05-11 14:05] LABS: Hematocrit 30.1 % (35.3-44.9); Hemoglobin 10.7 g/dL (11.5-15.4)
[2019-05-11] MEDS ORDERED: Ondansetron 4 MG/2 ML VIAL IVP PRN (15:16)
[2019-05-11] MEDS ORDERED: Sennosides 8.6 MG TABLET PO PRN (15:16)
[2019-05-11] MEDS ORDERED: Diclofenac Sodium (DR) 75 MG TABLET.DR PO PRN (15:16)
[2019-05-11] MEDS ORDERED: MOM Conc 10 ML UD.LIQ PO PRN (15:16)
[2019-05-11] MEDS ORDERED: Naloxone 0.4 MG/ML INJ IVP PRN (15:16)
[2019-05-11] MEDS: Ascorbic Acid 500 MG TABLET PO SCH (17:11)
[2019-05-11] MEDS: Ketorolac 30 MG/ML VIAL IVP SCH ×3 (17:11→23:23)
[2019-05-11] MEDS: Gabapentin 300 MG CAPSULE PO SCH ×2 (17:16→20:05)
[2019-05-11] MEDS: Famotidine 20 MG TABLET PO SCH (20:00)
[2019-05-11] MEDS: ceFAZolin 2,000 MG in 0.9 % Sodium Chloride 100 ML IVPB SCH (20:00)
[2019-05-11] MEDS: Topiramate 100 MG TABLET PO SCH (20:01)
[2019-05-11] MEDS ORDERED: *HR* Dextrose 50 % in Water (Syg) 50 ML SYRINGE IVP PRN (20:58)
[2019-05-11] MEDS ORDERED: D5% in Water 1,000 ML IVC PRN (20:58)
[2019-05-11] MEDS ORDERED: Dextrose Gel 15 GM/37.5 ML TUBE PO PRN ×2 (20:58)
[2019-05-11] MEDS: Insulin LISPRO 300 UNITS/3 ML VIAL SQ SCH (22:04)
[2019-05-12 01:27] LABS: Basophils % 0.1 %; Hematocrit 28.1 % (35.3-44.9); Hemoglobin 9.7 g/dL (11.5-15.4); Immature Granulocytes % 0.5 % (0-4); Lymphocytes # 0.5 K/mcL (0.6-4.6); Mean Corpuscular HGB Conc 34.5 g/dL (31.6-35.5); Mean Corpuscular Hemoglobin 30.1 pg (28.0-33.3); Mean Corpuscular Volume 87.3 fL (83.0-100.0); Mean Platelet Volume 11.3 fL (9.4-12.4); Monocytes # 0.5 K/mcL (0.0-1.3); Monocytes % 4.1 %; Neutrophils # 11.7 K/mcL (1.6-8.9); Platelet Count 294 K/mcL (140-400); Red Blood Count 3.22 M/mcL (3.82-4.97); Red Cell Distribution Width 13.2 % (11.5-14.5); Segmented Neutrophils % 91.3 %; White Blood Count 12.8 K/mcL (4.3-11.1)
[2019-05-12 01:46] LABS: BUN/Creatinine Ratio 15 (6-26); Blood Urea Nitrogen 14 mg/dL (8-23); Calcium 8.9 mg/dL (8.6-10.3); Carbon Dioxide 26 mEq/L (23-29); Chloride 100 mEq/L (98-107); Glucose 125 mg/dL (70-105); Osmolality,Calculated 280 (280-300); Potassium 3.7 mEq/L (3.5-5.1); Sodium 134 mEq/L (136-145); eGFR For African Americans > 60 (> 60); eGFR For Non-African Americans > 60 (> 60)
[2019-05-12] MEDS: ceFAZolin 2,000 MG in 0.9 % Sodium Chloride 100 ML IVPB SCH (03:11)
[2019-05-12] MEDS: Ketorolac 30 MG/ML VIAL IVP SCH ×3 (05:39→17:54)
[2019-05-12] MEDS: Insulin LISPRO 300 UNITS/3 ML VIAL SQ SCH ×4 (07:31→20:16)
[2019-05-12] MEDS ORDERED: NON-FORMULARY MEDICATION 1 EACH EACH (Mv-Min/Iron/Folic/Calcium/Vitk [Women's Multivitamin PO SCH (09:00)
[2019-05-12] MEDS: Ascorbic Acid 500 MG TABLET PO SCH ×2 (09:01→16:48)
[2019-05-12] MEDS: Aspirin 81 MG TAB.CHEW PO SCH (09:01)
[2019-05-12] MEDS: Multivit/Ca/Min/Fe/FA 1 TAB TABLET PO SCH (09:02)
[2019-05-12] MEDS: Topiramate 100 MG TABLET PO SCH ×2 (09:02→20:16)
[2019-05-12] MEDS: Lisinopril 20 MG TABLET PO SCH (09:03)
[2019-05-12] MEDS: *HR* OxyCODONE Immed Rel 5 MG TABLET PO PRN (09:03)
[2019-05-12] MEDS: Gabapentin 300 MG CAPSULE PO SCH ×3 (09:05→20:16)
[2019-05-12] MEDS: amLODIPine 5 MG TABLET PO SCH (09:05)
[2019-05-12] MEDS: hydroCHLOROthiazide 25 MG TABLET PO SCH (09:05)
[2019-05-12] MEDS: Famotidine 20 MG TABLET PO SCH (20:15)
[2019-05-13] MEDS: Ketorolac 30 MG/ML VIAL IVP SCH ×2 (00:09→06:15)
[2019-05-13 05:24] LABS: Basophils % 0.4 %; Eosinophils % 0.4 %; Hematocrit 24.3 % (35.3-44.9); Hemoglobin 8.2 g/dL (11.5-15.4); Immature Granulocytes % 0.3 % (0-4); Lymphocytes # 1.5 K/mcL (0.6-4.6); Lymphocytes % 20.2 %; Mean Corpuscular HGB Conc 33.7 g/dL (31.6-35.5); Mean Corpuscular Hemoglobin 30.3 pg (28.0-33.3); Mean Corpuscular Volume 89.7 fL (83.0-100.0); Mean Platelet Volume 11.4 fL (9.4-12.4); Monocytes # 0.6 K/mcL (0.0-1.3); Monocytes % 8.5 %; Neutrophils # 5.3 K/mcL (1.6-8.9); Platelet Count 217 K/mcL (140-400); Red Blood Count 2.71 M/mcL (3.82-4.97); Red Cell Distribution Width 13.9 % (11.5-14.5); Segmented Neutrophils % 70.2 %; White Blood Count 7.5 K/mcL (4.3-11.1)
[2019-05-13 05:42] LABS: BUN/Creatinine Ratio 22 (6-26); Blood Urea Nitrogen 23 mg/dL (8-23); Calcium 8.3 mg/dL (8.6-10.3); Carbon Dioxide 29 mEq/L (23-29); Chloride 101 mEq/L (98-107); Glucose 142 mg/dL (70-105); Osmolality,Calculated 292 (280-300); Potassium 3.8 mEq/L (3.5-5.1); Sodium 138 mEq/L (136-145); eGFR For African Americans > 60 (> 60); eGFR For Non-African Americans 53 (> 60)
[2019-05-13] MEDS: Ascorbic Acid 500 MG TABLET PO SCH ×2 (09:13→15:43)
[2019-05-13] MEDS: amLODIPine 5 MG TABLET PO SCH (09:13)
[2019-05-13] MEDS: Aspirin 81 MG TAB.CHEW PO SCH (09:14)
[2019-05-13] MEDS: Multivit/Ca/Min/Fe/FA 1 TAB TABLET PO SCH (09:14)
[2019-05-13] MEDS: Gabapentin 300 MG CAPSULE PO SCH ×3 (09:14→20:38)
[2019-05-13] MEDS: *HR* OxyCODONE Immed Rel 5 MG TABLET PO PRN ×2 (09:15→15:43)
[2019-05-13] MEDS: Topiramate 100 MG TABLET PO SCH ×2 (09:15→20:38)
[2019-05-13] MEDS: hydroCHLOROthiazide 25 MG TABLET PO SCH (09:16)
[2019-05-13] MEDS: Lisinopril 20 MG TABLET PO SCH (09:16)
[2019-05-13] MEDS: Insulin LISPRO 300 UNITS/3 ML VIAL SQ SCH ×4 (09:20→20:34)
[2019-05-13] MEDS: HYDROcodone BIT/Homatropine 5 MG TABLET PO PRN (20:37)
[2019-05-13] MEDS: Famotidine 20 MG TABLET PO SCH (20:37)
[2019-05-14 01:32] LABS: Hematocrit 23.7 % (35.3-44.9); Hemoglobin 7.8 g/dL (11.5-15.4)
[2019-05-14 01:53] LABS: BUN/Creatinine Ratio 28 (6-26); Blood Urea Nitrogen 25 mg/dL (8-23); Calcium 8.3 mg/dL (8.6-10.3); Carbon Dioxide 28 mEq/L (23-29); Chloride 101 mEq/L (98-107); Glucose 138 mg/dL (70-105); Osmolality,Calculated 287 (280-300); Potassium 3.9 mEq/L (3.5-5.1); Sodium 135 mEq/L (136-145); eGFR For African Americans > 60 (> 60); eGFR For Non-African Americans > 60 (> 60)
[2019-05-14] MEDS: Aspirin 81 MG TAB.CHEW PO SCH (09:51)
[2019-05-14] MEDS: Topiramate 100 MG TABLET PO SCH ×2 (09:51→19:51)
[2019-05-14] MEDS: Gabapentin 300 MG CAPSULE PO SCH ×3 (09:51→19:51)
[2019-05-14] MEDS: Multivit/Ca/Min/Fe/FA 1 TAB TABLET PO SCH (09:51)
[2019-05-14] MEDS: Ascorbic Acid 500 MG TABLET PO SCH ×2 (09:51→16:39)
[2019-05-14] MEDS: hydroCHLOROthiazide 25 MG TABLET PO SCH (09:51)
[2019-05-14] MEDS: amLODIPine 5 MG TABLET PO SCH (09:51)
[2019-05-14] MEDS: Lisinopril 20 MG TABLET PO SCH (09:52)
[2019-05-14] MEDS: Insulin LISPRO 300 UNITS/3 ML VIAL SQ SCH ×4 (09:52→20:58)
[2019-05-14] MEDS: HYDROcodone BIT/Homatropine 5 MG TABLET PO PRN ×2 (11:13→19:51)
[2019-05-14] MEDS: Famotidine 20 MG TABLET PO SCH (19:51)
[2019-05-15] MEDS: HYDROcodone BIT/Homatropine 5 MG TABLET PO PRN ×4 (02:23→21:34)
[2019-05-15 03:12] LABS: Hematocrit 23.9 % (35.3-44.9); Hemoglobin 8.3 g/dL (11.5-15.4)
[2019-05-15 03:30] LABS: BUN/Creatinine Ratio 23 (6-26); Blood Urea Nitrogen 19 mg/dL (8-23); Calcium 8.4 mg/dL (8.6-10.3); Carbon Dioxide 26 mEq/L (23-29); Chloride 101 mEq/L (98-107); Glucose 138 mg/dL (70-105); Osmolality,Calculated 284 (280-300); Potassium 3.6 mEq/L (3.5-5.1); Sodium 135 mEq/L (136-145); eGFR For African Americans > 60 (> 60); eGFR For Non-African Americans > 60 (> 60)
[2019-05-15] MEDS: Insulin LISPRO 300 UNITS/3 ML VIAL SQ SCH ×4 (09:45→21:30)
[2019-05-15] MEDS: Ascorbic Acid 500 MG TABLET PO SCH ×2 (09:50→17:54)
[2019-05-15] MEDS: amLODIPine 5 MG TABLET PO SCH (09:50)
[2019-05-15] MEDS: Multivit/Ca/Min/Fe/FA 1 TAB TABLET PO SCH (09:50)
[2019-05-15] MEDS: Lisinopril 20 MG TABLET PO SCH (09:50)
[2019-05-15] MEDS: Gabapentin 300 MG CAPSULE PO SCH ×3 (09:50→21:30)
[2019-05-15] MEDS: Aspirin 81 MG TAB.CHEW PO SCH (09:50)
[2019-05-15] MEDS: hydroCHLOROthiazide 25 MG TABLET PO SCH (09:50)
[2019-05-15] MEDS: Topiramate 100 MG TABLET PO SCH ×2 (09:51→21:30)
[2019-05-15] MEDS: Famotidine 20 MG TABLET PO SCH (21:30)
[2019-05-16] MEDS: HYDROcodone BIT/Homatropine 5 MG TABLET PO PRN ×2 (04:22→10:27)
[2019-05-16 05:16] LABS: Hematocrit 23.8 % (35.3-44.9); Hemoglobin 8.1 g/dL (11.5-15.4)
[2019-05-16 05:35] LABS: BUN/Creatinine Ratio 31 (6-26); Blood Urea Nitrogen 23 mg/dL (8-23); Calcium 8.8 mg/dL (8.6-10.3); Carbon Dioxide 27 mEq/L (23-29); Chloride 102 mEq/L (98-107); Glucose 131 mg/dL (70-105); Osmolality,Calculated 285 (280-300); Potassium 3.7 mEq/L (3.5-5.1); Sodium 135 mEq/L (136-145); eGFR For African Americans > 60 (> 60); eGFR For Non-African Americans > 60 (> 60)
[2019-05-16] MEDS: Insulin LISPRO 300 UNITS/3 ML VIAL SQ SCH ×2 (08:03→12:44)
[2019-05-16] MEDS: Aspirin 81 MG TAB.CHEW PO SCH (08:17)
[2019-05-16] MEDS: Multivit/Ca/Min/Fe/FA 1 TAB TABLET PO SCH (08:17)
[2019-05-16] MEDS: Gabapentin 300 MG CAPSULE PO SCH (08:17)
[2019-05-16] MEDS: Ascorbic Acid 500 MG TABLET PO SCH (08:17)
[2019-05-16] MEDS: Topiramate 100 MG TABLET PO SCH (08:18)
[2019-05-16] MEDS: hydroCHLOROthiazide 25 MG TABLET PO SCH (08:18)
[2019-05-16] MEDS: Lisinopril 20 MG TABLET PO SCH (08:18)
[2019-05-16] MEDS: amLODIPine 5 MG TABLET PO SCH (08:18)
[2019-05-16 13:10] VITALS: BP 111/79
[2019-05-16 16:48] LABS: Estimated Average Glucose 111 mg/dl
== END 2019-05-16 16:24 ==
LOC: 3NENU 08:41 → SAMDAY 08:41 → 3NENU 15:18
PROVIDERS: ADMIT Orthopaedic Surgery; ATTEND Orthopaedic Surgery